=== PATIENT | male | born 1965 | race Caucasian/White ===

== ENCOUNTER 2020-01-03 16:27 | Observation (INO) ==
--- OUTSIDE RECORDS SUMMARY | 2020-01-03 16:29 | External Medical Summary | Continuity of Care Document ---
:1965 Author Name Musa Le, Provider Address Unavailable Unavailable , Care Team Providers Name Role Phone Harmeet Le, [email or web address] Unavailable Unavailable Problems Active medical history not documented Allergies and Adverse Reactions Allergy history not documented Medications Medications not documented Procedures Procedures not documented Immunizations Immunizations not documented Plan of Treatment Planned Observations Planned Goals not documented Results No Known Results Results not documented
[2020-01-03] MEDS ORDERED: NITROGLYCERIN SL 0.4 MG/TAB TAB SL PRN (16:43)
[2020-01-03] MEDS ORDERED: ASPIRIN CHEW 324 MG PO STA (16:43)
--- NOTE | 2020-01-03 16:48 | Emergency Department Note ---
ED Provider Note NAME: LEXI MOORE AGE: 54 SEX: M ARRIVES VIA: Walk-In INFORMANT: [Patient] ED PROVIDER(S): Tuan Cool MD CHIEF COMPLAINT: Chest pain IMPRESSION: Left-sided chest pain Acute electrocardiogram changes PLAN: Disposition: Admitted Condition: [Good] MEDICAL DECISION MAKING: The patient is a 54-year-old male who presented with intermittent left-sided chest pain. His EKG revealed inferior T wave inversions which are new. He did get a slight episode of pain while in the emergency department and was given a sublingual nitroglycerin which resolved his pain completely. His blood pressure improved. He was treated with aspirin. The patient will need further management in the hospital. Consultation was made with Dr. Tuan Whatley of the [facility] hospitalist service. He evaluated patient in the ER and admit him for further management. Triage Nursing notes reviewed and agree them. [Prior medical records reviewed] patient had a prior cardiac catheterization 11 years ago. Vital Signs: reviewed and remarkable for hypertension Differential diagnosis: Cardiac ischemia, aortic dissection, pulmonary embolism, pneumothorax, pneumonia, pericarditis, myocarditis, esophageal rupture, GERD, cholecystitis, pancreatitis, musculoskeletal, as well as other pathologies. ER treatment provided: Oral aspirin Sublingual nitroglycerin Diagnostics interpreted by me: ECG: Rate:95 Rhythm: Normal sinus rhythm Beatty: Normal QRS: Normal ST segements: No ST elevation or depression.T wave inversions inferiorly. Other: No PACs or PVCs. When compared to 03 September 2018 the inferior T wave inversions are new. Cardiac Monitoring: Cardiac monitoring: The patient was placed on continuous cardiac monitoring and observed. It revealed a normal sinus rhythm at 92 bpm without ectopy or evidence of dysrhythmia. Laboratory studies: [See below] an unremarkable CBC and chemistry panel except for mild hyperglycemia. The patient's troponin is currently normal. Imaging studies: Imaging studies: Chest x-ray. Findings: A chest x-ray was performed and revealed no pneumothorax, effusion, infiltrate, pulmonary edema, free air under the diaphragm, or wide mediastinum. Impression: No acute disease. [facility] HPI: The patient is a 54 year old male who presents to the Emergency Room with complaints of left-sided chest pain that has been intermittent. This started yesterday and is waxing and waning throughout the day. The patient also notes the following associated symptoms, nausea with the pain. The patient has found no relieving factors. Current pain is rated as 0/10. The pain episodes last several minutes. 1 did wake him from sleep. At its peak it was 5 out of 10. He notes having a catheterization and work-up done about a decade ago that was negative. He does have a strong family history of heart disease, is diabetic, and has hypertension. Pt denies LOC, headache, fevers, chills, diaphoresis, visual changes, neck pain,breathing difficulties, , vomiting, abdominal pain, back pain, melena, hematochezia, urinary symptoms, numbness, weakness, lymphadenopathy, rash, or other complaints. ROS: See above HPI for pertinent positives & negatives. A total of [10] systems reviewed and were otherwise negative. PAST MEDICAL HISTORY:[See Below], diabetes PAST SURGICAL HISTORY:[See Below] FAMILY HISTORY:[See Below], coronary artery disease SOCIAL HISTORY:Denies tobacco use. HOME MEDICATIONS:[See Below] ALLERGIES:[See Below] VITALS:[See Below] PHYSICAL EXAMINATION: GENERAL: Awake, alert, well-appearing, in no distress HENT: Normocephalic, atraumatic. Oropharynx unremarkable. EYES: Normal conjunctiva. Sclera non-icteric. NECK: Inspection normal. Non-tender. Supple. No nuchal rigidity. FROM. No masses. RESPIRATORY: Clear to auscultation. No wheezes. No rales. Normal respiratory effort. CARDIAC: Normal rate. Normal rhythm. No murmurs. No rubs. Extremities warm and well perfused. Pulses equal. No JVD. GI: Soft, non-distended. No tenderness to palpation. No rebound or guarding. No masses. RECTAL: Deferred. MUSCULOSKELETAL: Atraumatic. Chest examination reveals no tenderness. The back is symmetrical on inspection without obvious abnormality. There is no CVA tenderness to palpation. No joint edema. LOWER EXTREMITIES: Calves are equal size bilaterally and non-tender. No edema. No discoloration. NEURO: Normal sensorium. No sensory or motor deficits noted. SKIN: No rash or jaundice noted. ED COURSE: Procedures: [none] [Critical Care:] [None] Tuan Cool MD Impression & Plan Chest pain, Acute electrocardiogram changes Past Med/Surg History Medical History (Updated 01/03/20 @ 18:30 by Tuan Cool MD) Diabetes mellitus type 2, controlled Dyslipidemia Surgical History (Updated 01/03/20 @ 18:18 by Tuan Whatley MD) History of total right hip arthroplasty Status post cholecystectomy Family History (Updated 01/03/20 @ 18:20 by Tuan Whatley MD) Father Coronary heart disease Diabetes Grandfather (Maternal) Coronary heart disease Diabetes Grandfather (Paternal) Coronary heart disease Diabetes Brother Diabetes Social History (Updated 01/03/20 @ 18:20 by Tuan Whatley MD) Smoking Status: Never smoker Hx Alcohol Use: Yes Alcohol Intake Frequency Comment: few times a week Results & Data Vital Signs Vital Signs - 24 hr 01/03/20 16:29 01/03/20 17:00 01/03/20 18:10 Temperature 36.8 C Temperature Source Oral Pulse Rate 94 H 99 H Pulse Rate [Apical] 91 H Pulse Rate from SpO2 Sensor 100 H Pulse Rhythm [Apical] Regular Respiratory Rate 19 17 18 Respiratory Effort / Characteristics Non-Labored Non-Labored Spontaneous Respiratory Depth Normal Normal Respiratory Pattern Regular Regular Blood Pressure 209/96 H 141/75 H Blood Pressure [Right Arm] 162/81 H Blood Pressure Mean 133 100 Blood Pressure Mean [Right Arm] 108 Blood Pressure Position Sitting Pulse Oximetry 94 95 96 Oxygen Delivery Method Room Air Room Air Sepsis Recent Fever Within 48 Hours No Sepsis Action Taken by Nursing No Action Required 01/03/20 18:25 Temperature Temperature Source Pulse Rate Pulse Rate [Apical] Pulse Rate from SpO2 Sensor Pulse Rhythm [Apical] Respiratory Rate Respiratory Effort / Characteristics Respiratory Depth Respiratory Pattern Blood Pressure Blood Pressure [Right Arm] Blood Pressure Mean Blood Pressure Mean [Right Arm] Blood Pressure Position Pulse Oximetry Oxygen Delivery Method Room Air Sepsis Recent Fever Within 48 Hours Sepsis Action Taken by Nursing Laboratory Data Result diagrams: 01/03/20 16:47 01/03/20 17:44 Lab Results 01/03/20 01/03/20 01/03/20 Range/Units 16:47 16:47 16:47 WBC 6.70 (4.8-10.8) K/uL RBC 4.76 (4.7-6.1) M/uL Hgb 15.5 (14.0-18.0) g/dL Hct 44.3 (42-52) % MCV 93.1 (80-100) fL MCH 32.6 (25-34) pg MCHC 35.0 (32-36) g/dL RDW Std Deviation 43.3 (36.4-46.3) fL RDW Coeff of Helen 12.7 (11.5-14.5) % Plt Count 175 (130-400) K/uL MPV 10.0 (7.4-10.4) fL Immature Gran % (Auto) 0.9 % Neut % (Auto) 55.3 % Lymph % (Auto) 29.7 % Bibb % (Auto) 10.1 % Eos % (Auto) 3.6 % Baso % (Auto) 0.4 % Immature Gran # (Auto) 0.06 H (0.00-0.02) K/uL Neut # (Auto) 3.70 (1.4-6.5) K/uL Lymph # (Auto) 1.99 (1.2-3.4) K/uL Bibb # (Auto) 0.68 H (0.11-0.59) K/uL Eos # (Auto) 0.24 (0-0.5) K/uL Baso # (Auto) 0.03 (0-0.2) K/uL PT 10.7 (9.0-12.0) Seconds INR 1.0 (0.9-1.1) APTT 23.7 (21.0-31.0) Seconds PTT Ratio 0.8 Sodium 136 (136-145) mmol/L Potassium (3.5-5.1) mmol/L Chloride 102 (98-107) mmol/L Carbon Dioxide 28 (21-32) mmol/L Anion Gap 7.0 (3-11) BUN 18 (7-18) mg/dl Creatinine 0.95 (0.6-1.4) mg/dl Est Cr Clr Drug Dosing 105.2 ml/min Est GFR ( Amer) 103.3 Est GFR (Non-Af Amer) 89.1 BUN/Creatinine Ratio 18.7 (10-20) Glucose 260 H (70-99) mg/dl Calcium 9.5 (8.5-10.1) mg/dl Total Bilirubin 0.4 (0.2-1) mg/dl AST (15-37) U/L ALT 77 (12-78) U/L Alkaline Phosphatase 66 (45-117) U/L Troponin I < 0.015 (0-0.045) ng/ml Total Protein 7.4 (6.4-8.2) gm/dl Albumin 3.9 (3.4-5.0) gm/dl Globulin 3.5 (2.5-4.0) gm/dl Albumin/Globulin Ratio 1.1 (0.9-2) Lipase 107 (73-393) U/L 01/03/20 Range/Units 17:44 WBC (4.8-10.8) K/uL RBC (4.7-6.1) M/uL Hgb (14.0-18.0) g/dL Hct (42-52) % MCV (80-100) fL MCH (25-34) pg MCHC (32-36) g/dL RDW Std Deviation (36.4-46.3) fL RDW Coeff of Helen (11.5-14.5) % Plt Count (130-400) K/uL MPV (7.4-10.4) fL Immature Gran % (Auto) % Neut % (Auto) % Lymph % (Auto) % Bibb % (Auto) % Eos % (Auto) % Baso % (Auto) % Immature Gran # (Auto) (0.00-0.02) K/uL Neut # (Auto) (1.4-6.5) K/uL Lymph # (Auto) (1.2-3.4) K/uL Bibb # (Auto) (0.11-0.59) K/uL Eos # (Auto) (0-0.5) K/uL Baso # (Auto) (0-0.2) K/uL PT (9.0-12.0) Seconds INR (0.9-1.1) APTT (21.0-31.0) Seconds PTT Ratio Sodium (136-145) mmol/L Potassium 4.4 (3.5-5.1) mmol/L Chloride (98-107) mmol/L Carbon Dioxide (21-32) mmol/L Anion Gap (3-11) BUN (7-18) mg/dl Creatinine (0.6-1.4) mg/dl Est Cr Clr Drug Dosing ml/min Est GFR ( Amer) Est GFR (Non-Af Amer) BUN/Creatinine Ratio (10-20) Glucose (70-99) mg/dl Calcium (8.5-10.1) mg/dl Total Bilirubin (0.2-1) mg/dl AST (15-37) U/L ALT (12-78) U/L Alkaline Phosphatase (45-117) U/L Troponin I (0-0.045) ng/ml Total Protein (6.4-8.2) gm/dl Albumin (3.4-5.0) gm/dl Globulin (2.5-4.0) gm/dl Albumin/Globulin Ratio (0.9-2) Lipase (73-393) U/L Administered Medications Nitroglycerin (Nitrostat) 0.4 mg SL UD PRN PRN Reason: Chest Pain Stop: 02/02/20 16:42 Last Admin: 01/03/20 16:54 Dose: 0.4 mg Documented by: [id number] Discontinued Medications Aspirin (Aspirin) 324 mg PO NOW STA Stop: 01/03/20 16:44 Last Admin: 01/03/20 16:54 Dose: 324 mg Documented by: [id number] Discharge Plan Visit Data Chief Complaint: Chest Pain Stated Complaint: CHEST PAIN ED Provider: Tuan Cool Discharge Problem: Chest pain, Acute electrocardiogram changes Discharge Instructions Interventions: ED Discharge Assessment Last Done: 01/03/20 18:25 Forms Stand Alone Forms: [email or web address] Prescriptions Prescriptions: No Action metformin [Glucophage] 500 mg Tablet 500 mg PO BID RF: 0 Referrals Referrals: Lexi Wu MD [Primary Care Provider] -
[2020-01-03 16:53] LABS: Basophils # (auto) 0.03 K/uL (0-0.2); Basophils % (auto) 0.4 %; Eosinophils # (auto) 0.24 K/uL (0-0.5); Eosinophils % (auto) 3.6 %; Hematocrit (blood only) 44.3 % (42-52); Hemoglobin 15.5 g/dL (14.0-18.0); Immature Granulocytes # (auto) 0.06 K/uL (0.00-0.02); Immature Granulocytes % (auto) 0.9 %; Lymphocytes # (auto) 1.99 K/uL (1.2-3.4); Lymphocytes % (auto) 29.7 %; Mean Corpuscular Hemoglobin 32.6 pg (25-34); Mean Corpuscular Volume 93.1 fL (80-100); Monocytes # (auto) 0.68 K/uL (0.11-0.59); Monocytes % (auto) 10.1 %; Neutrophils % (auto) 55.3 %; Platelet Count 175 K/uL (130-400); RDW Coefficient of Variation 12.7 % (11.5-14.5); RDW Standard Deviation 43.3 fL (36.4-46.3); Red Blood Count 4.76 M/uL (4.7-6.1)
--- NOTE | 2020-01-03 16:58 | XRay Report ---
XR chest 1V portable HISTORY: 54 years-old Male Chest Pain . Atypical chest pain COMPARISON: Chest radiograph 05/11/2016 TECHNIQUE: Portable AP view of the chest FINDINGS: Calcified right hilar lymph nodes. Cardiac silhouette is unremarkable. No pneumothorax, pleural effus ion, airspace consolidation or overt pulmonary edema. Bones of the chest appear grossly intact. Degen erative changes of the shoulders and spine. IMPRESSION: No acute process. ACT 112: Negative or not required by law. The above report was generated using voice recognition software. It may contain grammatical, syntax o r spelling errors. Electronically signed by: Michi Navarro M.D. 01/03/2020 4:57 PM
[2020-01-03 17:06] LABS: Partial Thromboplastin Ratio 0.8; Partial Thromboplastin Time 23.7 Seconds (21.0-31.0); Prothrombin Time 10.7 Seconds (9.0-12.0)
[2020-01-03 17:15] LABS: Alanine Aminotransferase 77 U/L (12-78); Albumin Globulin Ratio 1.1 (0.9-2); Albumin Level 3.9 gm/dl (3.4-5.0); Alkaline Phosphatase 66 U/L (45-117); BUN Creatinine Ratio 18.7 (10-20); Bilirubin,Total 0.4 mg/dl (0.2-1); Blood Urea Nitrogen 18 mg/dl (7-18); Calcium 9.5 mg/dl (8.5-10.1); Carbon Dioxide 28 mmol/L (21-32); Chloride 102 mmol/L (98-107); Creatinine Clr Calc Pharmacy 105.2 ml/min; Est GFR (African American) 103.3; Est GFR (Non-African American) 89.1; Globulin 3.5 gm/dl (2.5-4.0); Glucose 260 mg/dl (70-99); Lipase 107 U/L (73-393); Sodium 136 mmol/L (136-145); Total Protein 7.4 gm/dl (6.4-8.2); Troponin I < 0.015 ng/ml (0-0.045)
--- NOTE | 2020-01-03 18:22 | History & Physical Report ---
Date of Service January 03, 2020 Assessment & Plan (1) Chest pain: 54-year-old male with multiple risk factors for coronary artery disease including a very strong family history. Presents with atypical chest pain, relieved by nitroglycerin. EKG shows sinus rhythm with inverted T waves inferiorly. First troponin is normal. Check serial troponins. Check lipid profile. Check echocardiogram. Start aspirin and metoprolol pending further diagnostic testing. Consult Cardiology. (2) Hypertension: Patient indicates that his blood pressures are sometimes borderline high, but he is not being treated for hypertension. Initial blood pressure in the ED was 209/96, repeat 141/75 after receiving nitroglycerin. Start metoprolol. Follow and titrate therapy. (3) Diabetes mellitus type 2, controlled: Diabetes mellitus type 2 without apparent complications. Takes metformin at home. Random blood sugar in ED 260. Check hemoglobin A1c. Hold metformin during hospital stay. Insulin coverage as necessary. (4) Dyslipidemia: History of dyslipidemia. Took atorvastatin in the past, but discontinued because of myalgias. Check lipid profile. Consider other therapeutic options if warranted. (5) DVT prophylaxis: VTE prophylaxis not indicated due to very low risk per IMPROVE Risk Assessment Model. Ambulate. (6) Discharge planning issues: Anticipated discharge to home. Family Medicine follow-up with Dr. Wu. History of Present Illness Chief Complaint: chest pain Primary Care Provider: Neo Wu MD 54-year-old male followed by Dr. Wu. History of diabetes mellitus type 2 and dyslipidemia. Very strong history of coronary artery disease, father, both grandfathers, and several uncles had coronary artery disease, several at a young age. Functional status is good and is able to do usual activities, including hunting, without chest pressure or unusual dyspnea. Last night around 0300 he had some crampy left parasternal chest pain which resolved spontaneously. Chest pain recurred around 0600, again resolving spontaneously. Few more episodes this afternoon, so he came to the ED for evaluation. Each episode was brief. No associated dyspnea, diaphoresis, nausea, vomiting. Came to the ED for evaluation and received nitroglycerin which seemed to help. Blood pressure was elevated upon arrival to the ED. Allergies Allergy/AdvReac Type Severity Reaction Status Date / Time No Known Allergies Allergy Unknown ` Verified 01/03/20 17:14 Home Medications Home Medications Medication Instructions Recorded Confirmed Type metformin [Glucophage] 500 mg PO BID 01/03/20 01/03/20 History Past Med/Surg History Medical History (Updated 01/03/20 @ 18:41 by Tuan Whatley MD) Diabetes mellitus type 2, controlled Dyslipidemia Hypertension Surgical History (Updated 01/03/20 @ 18:18 by Tuan Whatley MD) History of total right hip arthroplasty Status post cholecystectomy Family History (Updated 01/03/20 @ 18:20 by Tuan Whatley MD) Father Coronary heart disease Diabetes Grandfather (Maternal) Coronary heart disease Diabetes Grandfather (Paternal) Coronary heart disease Diabetes Brother Diabetes Social History (Updated 01/03/20 @ 18:20 by Tuan Wahtley MD) Smoking Status: Never smoker Hx Alcohol Use: Yes Alcohol Intake Frequency Comment: few times a week Review of Systems Constitutional: + weight gain (few pounds); no fever and no weight loss Eyes: no diplopia and no worsening vision Ear, Nose, Mouth, Throat: no nasal congestion, no sinus pain/pressure and no sore throat Respiratory: no cough and no dyspnea Cardiovascular: as per Subjective / HPI Gastrointestinal: + diarrhea/loose stools (chronic); no nausea, no vomiting, no constipation, no blood in stools and no melena Musculoskeletal: no joint pain and no myalgia Integumentary: no rash and no new lesions Neurologic: no headache(s) Endocrine: no polydipsia and no polyuria fasting blood sugars usually run in low 100's Hematologic / Lymphatic: no easy bleeding, no easy bruising and no lymphadenopathy Physical Exam Constitutional: WD/WN, vitals as above no acute distress Eyes: PERRL, conjunctivae normal, anicteric sclerae ENMT: external ear and nose normal, oropharynx normal Neck: trachea midline, no thyromegaly Respiratory: normal respiratory effort, lungs clear to auscultation Cardiovascular: Rate/Rhythm: regular rate Heart Sounds: + gallop (S4) and + murmur (II/ sys murmur at base); no cardiac rub Vessels: no JVD Extremities: normal capillary refill; no calf tenderness and no edema carotid and radial pulses +2/2 Gastrointestinal (Abdomen): normal bowel sounds, soft, nontender, no hepatosplenomegaly Musculoskeletal: Head/Neck/Chest: neck supple Extremities: strength 5/5 throughout; no cyanosis and no clubbing Skin: no rashes, warm and dry Neurologic: PERRL, EOMI no facial palsy no dysarthria or aphasia patellar DTR's 1/2 bilat Psychiatric: Orientation: alert and oriented x 3 Affect: euthymic affect Lymphatic: no cervical lymphadenopathy Results & Data Vital Signs (Past 12 Hours) Vital Signs Temp Pulse Pulse Resp BP BP Pulse Ox 01/03/20 18:10 91 H 18 162/81 H 96 01/03/20 17:00 99 H 17 141/75 H 95 01/03/20 16:29 36.8 C 94 H 19 209/96 H 94 Laboratory Results Laboratory Results - last 24 hr 01/03/20 01/03/20 01/03/20 16:47 16:47 16:47 WBC 6.70 RBC 4.76 Hgb 15.5 Hct 44.3 MCV 93.1 MCH 32.6 MCHC 35.0 RDW Std Deviation 43.3 RDW Coeff of Helen 12.7 Plt Count 175 MPV 10.0 Immature Gran % (Auto) 0.9 Neut % (Auto) 55.3 Lymph % (Auto) 29.7 [place] % (Auto) 10.1 Eos % (Auto) 3.6 Baso % (Auto) 0.4 Immature Gran # (Auto) 0.06 H Neut # (Auto) 3.70 Lymph # (Auto) 1.99 [place] # (Auto) 0.68 H Eos # (Auto) 0.24 Baso # (Auto) 0.03 PT 10.7 INR 1.0 APTT 23.7 PTT Ratio 0.8 Sodium 136 Potassium Chloride 102 Carbon Dioxide 28 Anion Gap 7.0 BUN 18 Creatinine 0.95 Est Cr Clr Drug Dosing 105.2 Est GFR ( Amer) 103.3 Est GFR (Non-Af Amer) 89.1 BUN/Creatinine Ratio 18.7 Glucose 260 H Calcium 9.5 Total Bilirubin 0.4 AST ALT 77 Alkaline Phosphatase 66 Troponin I < 0.015 Total Protein 7.4 Albumin 3.9 Globulin 3.5 Albumin/Globulin Ratio 1.1 Lipase 107 01/03/20 17:44 WBC RBC Hgb Hct MCV MCH MCHC RDW Std Deviation RDW Coeff of Helen Plt Count MPV Immature Gran % (Auto) Neut % (Auto) Lymph % (Auto) [place] % (Auto) Eos % (Auto) Baso % (Auto) Immature Gran # (Auto) Neut # (Auto) Lymph # (Auto) [place] # (Auto) Eos # (Auto) Baso # (Auto) PT INR APTT PTT Ratio Sodium Potassium 4.4 Chloride Carbon Dioxide Anion Gap BUN Creatinine Est Cr Clr Drug Dosing Est GFR ( Amer) Est GFR (Non-Af Amer) BUN/Creatinine Ratio Glucose Calcium Total Bilirubin AST ALT Alkaline Phosphatase Troponin I Total Protein Albumin Globulin Albumin/Globulin Ratio Lipase Diagnostic Findings PORTABLE CHEST X-RAY FINDINGS: Calcified right hilar lymph nodes. Cardiac silhouette is unremarkable. No pneumothorax, pleural effusion, airspace consolidation or overt pulmonary edema. Bones of the chest appear grossly intact. Degenerative changes of the shoulders and spine. IMPRESSION: No acute process. ACT 112: Negative or not required by law. The above report was generated using voice recognition software. It may contain grammatical, syntax or spelling errors. Electronically signed by: Michi Navarro M.D. 01/03/2020 4:57 PM ECG Additional Comments: EKG performed at 1636 reviewed and demonstrated NSR at 95 / min, inverted T- waves inferiorly. Code Status & VTE Plan Code Status Discussed with patient. He has a Living Will. He would like resuscitation attempted in the event of a cardiopulmonary arrest and there is a reasonable chance of a meaningful recovery, but does not want extraordinary measures initiated or continued if prognosis is extremely poor. Code status, therefore, is full code. VTE Prophylaxis Plan VTE Prophylaxis will be ordered: No
[2020-01-03] MEDS ORDERED: ACETAMINOPHEN 325 MG TAB PO PRN (18:58)
[2020-01-03] MEDS ORDERED: MoRPHine SULFATE 2 MG/ML CARP IV PRN (18:58)
[2020-01-03] MEDS ORDERED: GLUCAGON FOR INJ 1 MG VIAL IM PRN (19:15)
[2020-01-03] MEDS ORDERED: GLUCOSE 10 TABS/TUBE PO PRN (19:15)
[2020-01-03] MEDS ORDERED: CARBOHYDRATES FOR HYPOGLYCEMIA PO PRN (19:15)
[2020-01-03] MEDS ORDERED: DEXTROSE 50% 50 ML SYRINGE IV PRN (19:15)
[2020-01-03] MEDS ORDERED: GLUCOSE 40% GEL 15 GM TUBE PO PRN (19:15)
[2020-01-03] MEDS: INSULIN ASPART 100 UNITS/ML 3 ML PEN SC SCH (20:27)
[2020-01-03] MEDS: METOPROLOL TARTRATE 25 MG TAB PO SCH (20:27)
[2020-01-04 07:04] LABS: Chol HDL Ratio 6; Cholesterol 169 mg/dl (0-200); HDL Cholesterol 28 mg/dl; LDL Cholesterol Calculated 114 mg/dl; Triglycerides 137 mg/dl (0-150); Troponin I < 0.015 ng/ml (0-0.045); VLDL Cholesterol 27 mg/dl
[2020-01-04 07:14] LABS: Estimated Average Glucose 197 mg/dl; Hemoglobin A1C 8.5 % (4.5-5.6)
[2020-01-04] MEDS ORDERED: PERFLUTREN LIPID MICROSPHERE (DEFINITY) IV ONE (08:33)
[2020-01-04] MEDS: METOPROLOL TARTRATE 25 MG TAB PO SCH (08:49)
[2020-01-04] MEDS ORDERED: ASPIRIN 81 MG ECTAB PO SCH (09:00)
[2020-01-04] MEDS: INSULIN ASPART 100 UNITS/ML 3 ML PEN SC SCH ×2 (09:07→12:11)
--- NOTE | 2020-01-04 09:29 | Cardiology Consultation ---
Date of Consultation January 04, 2020 Assessment & Plan (1) Chest pain: Symptoms are suggestive of sensed ventricular ectopy patient with multiple ischemic risk factors. Agree with addition of beta-angi for hypertension and rhythm control Stress echocardiogram ordered for this morning to assess for ischemic burden and risk Patient needs risk factors readdressed and have discussed with patient. Would recommend adding low-dose beta-angi, NELDA inhibitor as well as trial reintroduction with statin. Would begin with rosuvastatin 5 mg/day (2) Hypertension: Patient warrants treatment with minimal of NELDA inhibitor and likely addition of low-dose beta-angi will be helpful (3) Dyslipidemia: Low HDL dyslipidemia pattern. Notes prior myalgias with atorvastatin (4) Aortic valve calcification: Will need serial echocardiograms yearly History of Present Illness Reason for Consultation: Chest pain, cardiac risk factors Requesting Physician: Dr. Tuan Whatley Attending Physician: Tuan Whatley MD History of Present Illness Patient is a 54-year-old male with multiple cardiac risk factors including poorly controlled diabetes mellitus, hypertension, hyperlipidemia past possible statin intolerance, strong family history of premature coronary and valvular heart disease. Patient presents this admission having developed an intermittent chest pressure sensation yesterday while working quietly in his office. Symptoms described as a cramping sensation occurring approximately every 10 minutes or so. Symptoms became more pronounced and more prevalent he presented to the emergency room for further evaluation. Symptoms are eased with beta-angi and nitrates. EKGs and enzymes not reflective of acute injury or ischemia. Patient is referred now for further evaluation. Patient carries a strong familial history of premature coronary disease and multiple cardiac risk factors. Notes possible myalgias with atorvastatin in the past. Previously on NELDA inhibitor discontinued. Blood pressure creeping up and elevated at times. Hemoglobin A1c 8.5. Denies prior history of myocardial infarction angina or congestive heart failure . Did undergo diagnostic cardiac catheterization in 2008 after chest pain during Persantine Cardiolite stress test. Study demonstrated no significant obstructive disease. He denies history of TIA or stroke rheumatic fever scarlet fever renal or hepatic disease. There is a strong familial history of aortic valve calcific disease in family including grandfather and father Further review of systems he denies acute fevers chills or sweats. Notes no cough hoarseness wheeze or hemoptysis notes no melena medication dysuria hematuria. Appetite and weight have been stable. No edema no claudication. Generally active without specific limitation and symptoms yesterday were not relationship to exertion. Initial EKG reveals elevated heart rate with mildl LVH with strain pattern. No acute changes on EKG this morning Troponins nondetectable Preliminary echocardiogram demonstrates preserved LV function with moderate calcification aortic valve no stenosis Allergies Allergy/AdvReac Type Severity Reaction Status Date / Time No Known Allergies Allergy Unknown ` Verified 01/03/20 17:14 Home Medications Home Medications Medication Instructions Recorded Confirmed Type metformin [Glucophage] 500 mg PO BID 01/03/20 01/03/20 History Patient History Medical History Diabetes mellitus type 2, controlled Dyslipidemia Hypertension Surgical History History of total right hip arthroplasty Status post cholecystectomy Family History Father Coronary heart disease Diabetes Grandfather (Maternal) Coronary heart disease Diabetes Grandfather (Paternal) Coronary heart disease Diabetes Brother Diabetes Social History Preferred Language: Syriac Communication Ability: Effective Make Up Editor Required: No Beliefs That Will Affect Care: None Current Living Situation: Alone Other Information That Helps Us Care for You: No Feels Safe at Home: Yes Safety Concerns: Feels Safe At This Time Smoking Status: Never smoker Hx Alcohol Use: Yes Alcohol type: beer, wine and hard liquor Alcohol Intake Frequency Comment: few times a week Hx Substance Use: No Review of Systems Review of Systems: All systems reviewed & are unremarkable except as noted in HPI & below Physical Exam Constitutional: WD/WN, vitals as above + obese; no acute distress Eyes: PERRL, conjunctivae normal, anicteric sclerae ENMT: external ear and nose normal, oropharynx normal Neck: trachea midline, no thyromegaly Respiratory: normal respiratory effort, lungs clear to auscultation Cardiovascular: Rate/Rhythm: regular rate and regular rhythm Heart Sounds: normal S1, normal S2 and + murmur (Grade 1-2 or 6 systolic murmur audible right upper sternal border); no gallop Palpation: normal PMI Vessels: normal carotid upstroke and radial pulses present; no JVD and no carotid bruit Extremities: no edema Gastrointestinal (Abdomen): normal bowel sounds, soft, nontender, no hepatos plenomegaly Musculoskeletal: no cyanosis or clubbing, extremities motor strength 5/5 Skin: no rashes, warm and dry Neurologic: PERRL, EOMI, accommodation nl, no face palsy, no dysarthria Psychiatric: A+Ox3, euthymic affect Results & Data ([facility]) Vital Signs (Past 12 Hours) Vital Signs Temp Pulse Pulse Pulse Resp BP BP 01/04/20 07:45 72 01/04/20 07:30 36.5 C 72 18 136/78 01/04/20 03:39 36.7 C 66 18 127/79 01/04/20 00:15 65 01/03/20 23:28 36.6 C 63 16 138/84 Pulse Ox 01/04/20 07:45 01/04/20 07:30 96 01/04/20 03:39 98 01/04/20 00:15 01/03/20 23:28 97 Laboratory Results Laboratory Results - last 24 hr 01/03/20 01/03/20 01/03/20 16:47 16:47 16:47 WBC 6.70 RBC 4.76 Hgb 15.5 Hct 44.3 MCV 93.1 MCH 32.6 MCHC 35.0 RDW Std Deviation 43.3 RDW Coeff of Helen 12.7 Plt Count 175 MPV 10.0 Immature Gran % (Auto) 0.9 Neut % (Auto) 55.3 Lymph % (Auto) 29.7 Faulk % (Auto) 10.1 Eos % (Auto) 3.6 Baso % (Auto) 0.4 Immature Gran # (Auto) 0.06 H Neut # (Auto) 3.70 Lymph # (Auto) 1.99 Faulk # (Auto) 0.68 H Eos # (Auto) 0.24 Baso # (Auto) 0.03 PT 10.7 INR 1.0 APTT 23.7 PTT Ratio 0.8 Sodium 136 Potassium Chloride 102 Carbon Dioxide 28 Anion Gap 7.0 BUN 18 Creatinine 0.95 Est Cr Clr Drug Dosing 105.2 Est GFR ( Amer) 103.3 Est GFR (Non-Af Amer) 89.1 BUN/Creatinine Ratio 18.7 Glucose 260 H POC Glucose Estimat Average Glucose Hemoglobin A1c Calcium 9.5 Total Bilirubin 0.4 AST ALT 77 Alkaline Phosphatase 66 Troponin I < 0.015 Total Protein 7.4 Albumin 3.9 Globulin 3.5 Albumin/Globulin Ratio 1.1 Triglycerides Cholesterol LDL Cholesterol, Calc VLDL Cholesterol, Calc HDL Cholesterol Cholesterol/HDL Ratio Lipase 107 01/03/20 01/03/20 01/03/20 17:44 20:25 22:39 WBC RBC Hgb Hct MCV MCH MCHC RDW Std Deviation RDW Coeff of Helen Plt Count MPV Immature Gran % (Auto) Neut % (Auto) Lymph % (Auto) Faulk % (Auto) Eos % (Auto) Baso % (Auto) Immature Gran # (Auto) Neut # (Auto) Lymph # (Auto) Faulk # (Auto) Eos # (Auto) Baso # (Auto) PT INR APTT PTT Ratio Sodium Potassium 4.4 Chloride Carbon Dioxide Anion Gap BUN Creatinine Est Cr Clr Drug Dosing Est GFR ( Amer) Est GFR (Non-Af Amer) BUN/Creatinine Ratio Glucose POC Glucose 177 H Estimat Average Glucose Hemoglobin A1c Calcium Total Bilirubin AST ALT Alkaline Phosphatase Troponin I < 0.015 Total Protein Albumin Globulin Albumin/Globulin Ratio Triglycerides Cholesterol LDL Cholesterol, Calc VLDL Cholesterol, Calc HDL Cholesterol Cholesterol/HDL Ratio Lipase 01/04/20 01/04/20 01/04/20 06:08 06:08 07:12 WBC RBC Hgb Hct MCV MCH MCHC RDW Std Deviation RDW Coeff of Helen Plt Count MPV Immature Gran % (Auto) Neut % (Auto) Lymph % (Auto) Faulk % (Auto) Eos % (Auto) Baso % (Auto) Immature Gran # (Auto) Neut # (Auto) Lymph # (Auto) Faulk # (Auto) Eos # (Auto) Baso # (Auto) PT INR APTT PTT Ratio Sodium Potassium Chloride Carbon Dioxide Anion Gap BUN Creatinine Est Cr Clr Drug Dosing Est GFR ( Amer) Est GFR (Non-Af Amer) BUN/Creatinine Ratio Glucose POC Glucose 153 H Estimat Average Glucose 197 Hemoglobin A1c 8.5 H Calcium Total Bilirubin AST ALT Alkaline Phosphatase Troponin I < 0.015 Total Protein Albumin Globulin Albumin/Globulin Ratio Triglycerides 137 Cholesterol 169 LDL Cholesterol, Calc 114 VLDL Cholesterol, Calc 27 HDL Cholesterol 28 Cholesterol/HDL Ratio 6 Lipase
[2020-01-04] MEDS ORDERED: lisinopriL 5 MG TAB PO SCH (11:15)
--- NOTE | 2020-01-04 11:23 | Cardiology Progress Note ---
Date of Service January 04, 2020 Subjective Patient was referred and underwent stress echocardiogram today. Patient exercised for 6 minutes on a Pradeep protocol and achieved 85% age-predicted maximal heart without cardiac ischemia by EKG or echocardiographic criteria. Patient experienced no symptoms during the study Current presentation not reflective of acute ischemia or coronary syndrome. Suspect sensed ventricular ectopy given clinical history with superimposed on uncontrolled hypertension. Recommendations: As prior would treat hypertension with addition of metoprolol and lisinopril. Restart statin with rosuvastatin 5 mg/day Follow-up with cardiology 6 weeks Results & Data Vital Signs (Past 12 Hours) Vital Signs Temp Pulse Pulse Pulse Resp BP BP 01/04/20 07:45 72 01/04/20 07:30 36.5 C 72 18 136/78 01/04/20 03:39 36.7 C 66 18 127/79 01/04/20 00:15 65 01/03/20 23:28 36.6 C 63 16 138/84 Pulse Ox 01/04/20 07:45 01/04/20 07:30 96 01/04/20 03:39 98 01/04/20 00:15 01/03/20 23:28 97
--- NOTE | 2020-01-04 14:26 | Hospitalist Progress Note ---
Date of Service January 04, 2020 Assessment & Plan (1) Chest pain: 54-year-old male with multiple risk factors for coronary artery disease including a very strong family history. Presented with atypical chest pain, relieved by nitroglycerin. EKG showed sinus rhythm with inverted T waves inferiorly. Serial troponins normal. LDL-c = 114. Echocardiogram showed mild LVH, no wall motion abnormalities, LVEF 60-65%. Cardiology consulted. No stress-induced ischemia on treadmill stress echo. Calculated 10-year risk of GA about 25% per AHA model. Start aspirin. Ongoing risk factor modification. (2) Hypertension: Patient indicates that his blood pressures are sometimes borderline high, but he is not being treated for hypertension. Initial blood pressure in the ED was 209/96, repeat 141/75 after receiving nitroglycerin. Discharge on metoprolol and lisinopril. Follow and titrate therapy. (3) Diabetes mellitus type 2, controlled: Diabetes mellitus type 2 without apparent complications. Takes metformin at home. Random blood sugar in ED 260. Hemoglobin A1c 8.5. FBS 153. Continue metformin. Will not increase dose because pt experiencing GI side effects. Further discussions with PCP to optimize glycemic control recommended. (4) Dyslipidemia: History of dyslipidemia. Took atorvastatin in the past, but discontinued because of myalgias. LDL-c 114. Try rosuvastatin 5 mg. Consider alternative therapies if rosuvastatin not tolerated. (5) DVT prophylaxis: VTE prophylaxis not indicated due to very low risk per IMPROVE Risk Assessment Model. Ambulate. (6) Discharge planning issues: Discharge to home. Family Medicine follow-up with Dr. Wu. Admission and Anticipated Discharge Date Admission Date: January 03, 2020 Subjective Recheck for chest pain. Patient seen in their room around 1440. No further chest pain. No SOB, nausea, vomiting. Stress test went well. Physical Exam Constitutional: no acute distress Respiratory: no respiratory distress Auscultation: lungs clear to auscultation bilaterally Cardiovascular: Rate/Rhythm: regular rate and regular rhythm Vessels: no JVD Extremities: no calf tenderness and no edema Gastrointestinal (Abdomen): normal bowel sounds, soft, nontender, no hepatosplenomegaly Skin: no rashes, warm and dry Psychiatric: Orientation: alert and oriented x 3 Results & Data ([facility] [place]) Vital Signs (Past 12 Hours) Vital Signs Temp Pulse Pulse Pulse Resp BP BP 01/04/20 11:28 36.6 C 73 20 138/83 01/04/20 07:45 72 01/04/20 07:30 36.5 C 72 18 136/78 01/04/20 03:39 36.7 C 66 18 127/79 Pulse Ox 01/04/20 11:28 96 01/04/20 07:45 01/04/20 07:30 96 01/04/20 03:39 98 Laboratory Results Laboratory Results - last 24 hr 01/04/20 01/04/20 01/04/20 06:08 06:08 07:12 POC Glucose 153 H Estimat Average Glucose 197 Hemoglobin A1c 8.5 H Troponin I < 0.015 Triglycerides 137 Cholesterol 169 LDL Cholesterol, Calc 114 VLDL Cholesterol, Calc 27 HDL Cholesterol 28 Cholesterol/HDL Ratio 6
--- NOTE | 2020-01-04 16:24 | Electrocardiogram Report ---
Test Reason : Blood Pressure : / mmHG Vent. Rate : 067 BPM Atrial Rate : 067 BPM P-R Int : 134 ms QRS Dur : 094 ms QT Int : 400 ms P-R-T Axes : 043 068 038 degrees QTc Int : 422 ms Normal sinus rhythm Normal ECG When compared with ECG of 03-JAN-2020 16:36, (unconfirmed) T wave inversion no longer evident in Inferior leads Confirmed by Yunior Salazar ([id number]) on 01/04/2020 4:23:50 PM Referred By: REFERRED SELF Confirmed By:Milton Salazar
--- NOTE | 2020-01-04 16:32 | Electrocardiogram Report ---
Test Reason : Blood Pressure : / mmHG Vent. Rate : 095 BPM Atrial Rate : 095 BPM P-R Int : 134 ms QRS Dur : 100 ms QT Int : 350 ms P-R-T Axes : 067 080 -25 degrees QTc Int : 439 ms Normal sinus rhythm Possible Left atrial enlargement T wave abnormality, consider inferior ischemia Abnormal ECG When compared with ECG of 11-MAY-2016 22:51, Inverted T waves have replaced nonspecific T wave abnormality in Inferior leads Confirmed by Yunior Salazar ([id number]) on 01/04/2020 4:31:38 PM Referred By: REFERRED SELF Confirmed By:Milton Salazar
--- NOTE | 2020-01-05 06:22 | Discharge Summary ---
Date of Service Date of Admission: 01/03/20 Date of Discharge: 01/04/20 Admission HPI Per Admitting Provider 54-year-old male followed by Dr. Wu. History of diabetes mellitus type 2 and dyslipidemia. Very strong history of coronary artery disease, father, both grandfathers, and several uncles had coronary artery disease, several at a young age. Functional status is good and is able to do usual activities, including hunting, without chest pressure or unusual dyspnea. Last night around 0300 he had some crampy left parasternal chest pain which resolved spontaneously. Chest pain recurred around 0600, again resolving spontaneously. Few more episodes this afternoon, so he came to the ED for evaluation. Each episode was brief. No associated dyspnea, diaphoresis, nausea, vomiting. Came to the ED for evaluation and received nitroglycerin which seemed to help. Blood pressure was elevated upon arrival to the ED. Principal Diagnosis chest pain, LA ruled out OTHER ACUTE / NEW DIAGNOSES: hypertension left ventricular hypertrophy aortic valve calcification without significant stenosis Discharge Data Allergies Allergy/AdvReac Type Severity Reaction Status Date / Time No Known Allergies Allergy Unknown ` Verified 01/03/20 17:14 Consultations 01/03/20 17:43 ED Decision to Admit Stat 01/03/20 18:58 Consult Cardiology Routine Hospital Course (1) Chest pain: 54-year-old male with multiple risk factors for coronary artery disease including a very strong family history. Presented with atypical chest pain, relieved by nitroglycerin. EKG showed sinus rhythm with inverted T waves inferiorly. Serial troponins normal. LDL-c = 114. Echocardiogram showed mild LVH, no wall motion abnormalities, LVEF 60-65%. Cardiology consulted. No stress-induced ischemia on treadmill stress echo. Calculated 10-year risk of LA about 25% per AHA model. Start aspirin. Ongoing risk factor modification. (2) Aortic valve calcification: Echo showed moderately calcified aortic valve leaflets without significant stenosis. Annual echocardiography recommended to follow. (3) Hypertension: Patient indicates that his blood pressures are sometimes borderline high, but he is not being treated for hypertension. Initial blood pressure in the ED was 209/96, repeat 141/75 after receiving nitroglycerin. Discharge on metoprolol and lisinopril. Follow and titrate therapy. (4) Diabetes mellitus type 2, controlled: Diabetes mellitus type 2 without apparent complications. Takes metformin at home. Random blood sugar in ED 260. Hemoglobin A1c 8.5. FBS 153. Continue metformin. Will not increase dose because pt experiencing GI side effects. Further discussions with PCP to optimize glycemic control recommended. (5) Dyslipidemia: History of dyslipidemia. Took atorvastatin in the past, but discontinued because of myalgias. LDL-c 114. Try rosuvastatin 5 mg. Consider alternative therapies if rosuvastatin not tolerated. (6) DVT prophylaxis: VTE prophylaxis not indicated due to very low risk per IMPROVE Risk Assessment Model. Ambulate. (7) Discharge planning issues: Discharge to home. Family Medicine follow-up with Dr. Wu. Total Time Total Time Spent Total Time Spent (In Minutes): 30 Discharge Plan Discharge Items Patient Disposition: Home - Self-Care Reason For Visit: chest pain Discharge Diagnosis: chest pain, no indication of myocardial infarction. elevated blood pressure elevated cholesterol elevated blood sugars Condition on Discharge: Good Activity: Resume your previous activity Non-emergency contact: Primary Care Provider and Hospitalist Call non-emergency contact if: you have any medication questions and your symptoms worsen Follow-up/Referrals: Neo Wu MD [Primary Care Provider] - 01/07/20 10:20 am (01/07/2020 10:20 AM Provider Neo Wu MD [facility] ) Diet: Carb Consistent or DM2 and Heart Healthy Addtl Attending Provider Instructions: MEDICATION CHANGES: metoprolol tartrate (Lopressor) 25 mg twice a day lisinopril (Prinivil or Zestril) 5 mg daily rosuvastatin (Crestor) 5 mg daily stop if you have severe muscle pain or weakness Please discuss options for management of your diabetes with Dr. Wu. SUMMARY OF TEST RESULTS: No sign of myocardial infarction (troponins normal x 3). Echocardiogram showed mild left ventricular hypertrophy and aortic sclerosis without significant stenosis. Stress test did not show any indication of severe blockage in coronary arteries. LDL cholesterol was 114. Hemoglobin A1c was 8.5. Fasting blood sugar was 153. RECOMMENDATIONS FOR FOLLOW-UP: Yearly echocardiogram to follow aortic valve recommended. Dr. Wu can order. OTHER INSTRUCTIONS: Seek medical attention if you have: * temperature above 101 * chest pain or trouble breathing * abdominal pain, nausea, vomiting * diarrhea, dark stools or bloody stools * any unanswered questions or concerns Call 911 if symptoms are severe. Please take good care of yourself. Call if you have any questions or problems. You can reach a [facility] hospitalist on duty at [facility] 24 hours a day by calling [phone]. My cell # is [phone]. Pending Studies at Discharge: No Stand-Alone Forms: My [facility], Smoking Cessation Medications and DC Order Prescriptions: New metoprolol tartrate 25 mg Tablet 25 mg PO BID Qty: 60 RF: 5 lisinopril [Zestril] 5 mg Tablet 5 mg PO QAM Qty: 30 RF: 5 rosuvastatin [Crestor] 5 mg Tablet 5 mg PO QAM Qty: 30 RF: 5 aspirin 81 mg Tablet,Delayed Release (Dr/Ec) 81 mg PO QAM Qty: 30 RF: 12 Continued metformin [Glucophage] 500 mg Tablet 500 mg PO BID RF: 0 Discharge Orders: Discharge Order (Routine); Ordered 01/04/20 Ordered By: Tuan Avery/Other Patient Handouts: Diabetes and Heart Disease, Diabetes Residential Complications, Diabetes Healthy Meals, Diabetes Exercise Benefits, Diabetes Manage A1C Test Admission Data Admit Date/Time: 01/03/20 17:42 Attending Provider: Tuan Whatley Admit Provider: Tuan Whatley Primary Care Provider: Neo Wu Other Providers: Tuan Whatley ; Sean Fisher Other Interventions: Discharge Summary Assessment (RN) Last Done: 01/04/20 14:49 DC Date/Time DO NOT enter until pt leaves facility: 01/04/20 15:08
[2020-01-05] MEDS ORDERED: ROSUVASTATIN CALCIUM 5 MG TAB PO SCH (09:00)
== END 2020-01-04 15:08 | disposition home or self-care (01) ==
LOC: ED 16:27 → 2S 17:42 → INTOOBSV 17:42 → 2S 18:25

== ENCOUNTER 2023-10-01 05:01 | Observation (INO) ==
--- NOTE | 2023-09-16 10:26 | PAT Medication Instructions ---
Medication Instructions Date of Service September 16, 2023 Home Medications Medication Instructions Recorded aspirin 81 mg tablet,delayed 81 mg PO QAM #30 tabs 01/04/20 release lisinopril 5 mg tablet (Zestril) 5 mg PO QAM #30 tabs 01/04/20 metoprolol tartrate 25 mg tablet 25 mg PO BID #60 tabs 01/04/20 metformin 500 mg tablet (Glucophage) 500 mg PO BID aspirin 81 mg tablet,delayed release 81 mg PO QAM lisinopril 5 mg tablet (Zestril) 5 mg PO QAM metoprolol tartrate 25 mg tablet 25 mg PO BID cholecalciferol (vitamin D3) 50 mcg (2,000 unit) capsule (Vitamin D3) 100 mcg PO QAM cyanocobalamin (vitamin B-12) 25 mcg tablet 25 mcg PO QAM ASK your prescriber and surgeon aspirin 81 mg tablet,delayed release 81 mg PO QAM DO NOT take the morning of surgery metformin 500 mg tablet (Glucophage) 500 mg PO BID lisinopril 5 mg tablet (Zestril) 5 mg PO QAM cholecalciferol (vitamin D3) 50 mcg (2,000 unit) capsule (Vitamin D3) 100 mcg PO QAM cyanocobalamin (vitamin B-12) 25 mcg tablet 25 mcg PO QAM Take morning of surgery With a small sip of water, OTHERWISE NOTHING TO EAT OR DRINK AFTER MIDNIGHT: metoprolol tartrate 25 mg tablet 25 mg PO BID Take evening before surgery metformin 500 mg tablet (Glucophage) 500 mg PO BID metoprolol tartrate 25 mg tablet 25 mg PO BID Other Notes If you have any questions please call us at [phone] or [phone] or [phone] or [phone]
--- NOTE | 2023-09-19 15:13 | Anesthesiology Consultation ---
Date of Service September 19, 2023 Assessment & Plan (1) Encounter for pre-operative examination: - Check BSG AM DOS - Infectious disease screening: Per assessment on 09/19/23: No known infectious disease contacts or current infectious disease symptoms. No noted recent Covid positive test result. - Outpatient joint assessment: Pt currently scheduled for inpatient pathway. If surgeon requests review for outpatient joint pathway, patient is not recommended candidate for outpatient joint program from anesthesia standpoint. - PCP visit (09/13/23 S): "Aortic valve stenosis.. Echo, complete (2D), trans- thoracic.. I would like to get this before his surgery just to better quantitate the degree of.. stenosis. He likely will need to be scheduled with Cardiology just for regular.. annual exams" - [place] ER visit (09/21/23): Complaints of neck pain with radiation to the deltoid. "Upon assessment the patient has history of an ACDF, he reports he rolled over in bed and began to have pain in his cervical spine with radiation to the deltoid. He denies any numbness and tingling in his left lower extremity.. The patient was provided with a lidocaine patch over the area of pain, as well as a cyclobenzaprine, and a Toradol IM injection. Upon reassessment the patient states moderate relief of pain from the medications. A CT scan of the cervical spine was ordered to rule out damage to the hardware from the ACDF. No vascular imaging was indicated based on the patient's presentation. The patient was discharged home prior to the formal radiology reading due to the extended length of time it was taking for [facility] to read the image. The patient had no red flag symptoms and he and I felt safe for discharge with the plan of returning for worsening of his symptoms. The patient was discharged with lidoderm patches and prednisone 20mg x 5 days for inflammation. He was provided strict return precaut ions and follow-up care. The patient was contacted at 0821 09/22/23 by myself to inform him his formal CT showed no acute injury, fracture or subluxation. The plan of care at discharge will remain at this time." - Aortic stenosis: PCP-ordered Echo performed 09/2023 notes Moderate to borderline severe aortic valve stenosis (AIDA 1.0-1.1cm2, MG 25.8mmhg). "Serial echocardiographic evaluation recommended. Consider cardiology consultation." Echo reviewed by PCP- PCP recommended/arranging preop stress test + cardiology evaluation. Awaiting PCP-ordered preop cardiology evaluation + stress test. Chart Review Chart Review: Patient seen in Pre Admission Testing Teaching & Discussion Pre-Anesthesia Teaching/Discussion Notes: Instructed NPO after midnight before surgery,except medications with 15 cc of water. Medication instructions provided according to the PAT guidelines. History Surgery Operation Date: 10/01/23 12:30 Proposed Procedures p Left Total Hip Arthroplasty - Lester Leary MD Height/Weight Height: 5 ft 7 in Weight: 110.5 kg Allergies Allergy/AdvReac Type Severity Reaction Status Date / Time No Known Allergies Allergy Unknown ` Verified 09/16/23 08:35 Medications Home Medications Medication Instructions Recorded Confirmed Last Taken aspirin 81 mg tablet,delayed 81 mg PO QAM #30 tabs 01/04/20 09/22/23 Unknown release lisinopril 5 mg tablet (Zestril) 5 mg PO QAM #30 tabs 01/04/20 09/22/23 Unknown cholecalciferol (vitamin D3) 50 100 mcg PO QAM 09/16/23 09/22/23 Unknown mcg (2,000 unit) capsule (Vitamin D3) cyanocobalamin (vitamin B-12) 50 50 mcg PO DAILY 09/22/23 09/22/23 Unknown mcg tablet (Vitamin B-12) lidocaine 5 % topical patch 1 patch topical DAILY #15 ea 09/22/23 Unknown (Lidoderm) metformin 500 mg tablet,extended 500 mg PO BID 09/22/23 09/22/23 Unknown release 24 hr metoprolol tartrate 25 mg tablet 25 mg PO AMHS 09/22/23 09/22/23 Unknown prednisone 10 mg tablet 10 mg PO DIRECTED #31 tabs 09/22/23 Unknown Past Medical History Medical History Aortic stenosis Echo 09/18/23: Moderate to borderline severe aortic valve stenosis (AIDA 1.0- 1.1cm2, MG 25.8mmhg) Hx of squamous cell carcinoma Bicuspid aortic valve Reported per patient, aortic valve with "three leaflets" per 09/2023 Echo Hypertension Dyslipidemia Hx, no longer on meds Diabetes mellitus type 2, controlled Exercise / Class Metabolic Activity II 4-5 Yardwork/Stairs/Walk up hill (one FS (no CP, no SOB)) Past Family History Family History Father Coronary heart disease Diabetes Grandfather (Maternal) Coronary heart disease Diabetes Grandfather (Paternal) Coronary heart disease Diabetes Brother Diabetes Past Surgical History Surgical History Hx of fusion of cervical spine ACDF Hx of colonoscopy Hx of squamous cell carcinoma excision back [place] teeth extracted History of total right hip arthroplasty Status post cholecystectomy Past Anesthesia History No Hx of Anesthesia Complications and No Family Hx of Anesthesia Complications History of PONV No Hx of PONV and No Hx of Motion Sickness Social History Smoking Status: Never smoker Do You Dip or Chew Tobacco: No (hx-quit years ago; advised) Hx Alcohol Use: Yes Alcohol type: beer, wine and hard liquor alcohol intake frequency: holidays/special occasions only Hx Substance Use: No substance use type: does not use Review of Systems Patient denies chest pain, shortness of breath, dyspnea on exertion, fever, chills, cough, wheezing, palpitations. Physical Exam Vital Signs VITALS BP 108/67 P 71 TEMP 98.2 SP02 98%RA RESP 16 PHYSICAL Full cervical extension range of motion. Full TMJ range of motion. TMD 4 finger breaths Mallampati Score 1 Dentition: intact, + caps Lungs: clear throughout to auscultation Cardiac: regular rate and rhythm, II-III/ systolic murmur Spine: normal Carotid arteries: negative bruit Extremities: no LE edema Lab Results Anesthesia Preop Results Results Anesthesia Widget: WBC 6.30 K/ul (4.8-10.8) 09/19/23 Hgb 14.6 g/dl (14.0-18.0) 09/19/23 Hct 42.4 % (42.0-52.0) 09/19/23 Plt 213 K/uL (130-400) 09/19/23 PT 10.9 Seconds (9.0-12.0) 09/19/23 PTT 25 Seconds (21-31) 09/19/23 INR 1.0 (0.9-1.1) 09/19/23 Blood Type A Positive 09/19/23 Antibody Screen NEGATIVE 09/19/23 Testing Laboratory Results 09/13/23 SODIUM 140 POTASSIUM 4.7 CHLORIDE 99 CO2 30 BUN 19 CREATININE 0.8 GLUCOSE 154 A1C 7.7% Electrocardiogram Date: 09/19/23 NSR at 62bpm. "Normal ECG" Isolated lead III TWI. Chest X-Ray Date: 09/19/23 FINDINGS: PA and lateral chest radiographs are compared to study dated 01/03/2020. Correlation is made to chest CT dated 08/19/2008. The cardiomediastinal silhouette is unremarkable. Calcified right hilar nodes are again noted. There is mild elevation of the right hemidiaphragm. There are tiny calcified granulomas. The lungs and pleural spaces are otherwise clear. There is no pneumothorax. The bony thorax appears intact. Fusion hardware is noted in the lower cervical spine. Cholecystectomy clips are noted in the upper abdomen. IMPRESSION: No active disease in the chest. Echocardiogram Date: 09/18/23 LVEF 60-65%. Mildly increased concentric LV wall thickness. Grade 1 diastolic dysfunction. Aortic valve has 3 leaflets. Aortic valve is severely calcified. Moderate to borderline severe aortic valve stenosis (AIDA 1.0-1.1cm2, MG 25.8mmhg). "Serial echocardiographic evaluation recommended. Consider cardiology consultation." Stress Test Date: 01/06/20 Stress echo is negative for inducible ischemia. Normal resting wall motion and no stress test induced wall motion abnormality. Moderate workload achieved.7.00 METS. 85% MPHR. EF 55-60%. Mild concentric LVH. Other Testing Cervical spine CT Date: 09/21/23 FINDINGS: Vertebrae: Status post anterior fusion of C5, C6 and C7 with expected postsurgical changes. No acute fracture. Discs/spinal canal/neural foramina: No acute findings. No spinal canal stenosis. Soft tissues: Unremarkable. IMPRESSION: No evidence of acute cervical spine pathology.
[2023-10-01] MEDS ORDERED: LR 15ML/HR IV SCH (06:00)
[2023-10-01] MEDS ORDERED: ACETAMINOPHEN 500 MG TAB PO SCH (06:00)
[2023-10-01] MEDS ORDERED: Scopolamine 1 MG TDSY TD SCH (06:00)
[2023-10-01] MEDS ORDERED: CeleBREX 200 MG CAP PO SCH (06:00)
[2023-10-01] MEDS ORDERED: LR 60ML/HR IV SCH (06:00)
[2023-10-01] MEDS ORDERED: METOCLOPRAMIDE HCL 10 MG TABLET PO SCH (06:00)
[2023-10-01] MEDS ORDERED: TRANEXAMIC ACID 1,000 MG **IV Pre-op IV SCH (06:00)
[2023-10-01] MEDS ORDERED: ceFAZolin 2000MG 2,000 MG/15 ML SYR IV SCH (06:00)
[2023-10-01] MEDS ORDERED: FAMOTIDINE 20 MG TAB PO SCH (06:00)
[2023-10-01] MEDS ORDERED: ROPIVACAINE 0.5% 5 MG/ML 30 ML VIAL ONE (06:19)
[2023-10-01] MEDS ORDERED: BUPIVACAINE/EPINEPHRINE 0.5% MPF 1:200,000 30 ML VIAL ONE (06:34)
[2023-10-01] MEDS ORDERED: PROPOFOL IV EMULSION 10 MG/ML 20 ML VIAL IV ONE (06:39)
[2023-10-01] MEDS ORDERED: MoRPHine SULFATE PF 1 MG/ML 10 ML AMP/VIAL ONE (06:39)
[2023-10-01] MEDS ORDERED: MIDAZOLAM HCL 1 MG/ML 2ML VIAL ONE (06:39)
[2023-10-01] MEDS ORDERED: LIDOCAINE 2% 2 ML VIAL/AMP(20MG/ML) INFIL ONE (06:39)
[2023-10-01] MEDS ORDERED: ONDANSETRON INJ 2 MG/ML 2 ML VIAL ONE (06:39)
[2023-10-01] MEDS ORDERED: fentaNYL citrate PF 100 MCG/2 ML VIAL ONE (06:42)
[2023-10-01] MEDS ORDERED: HYDROmorphone INJ 1 MG/ML SYRINGE IV PRN (06:45)
[2023-10-01] MEDS ORDERED: PROMETHAZINE HCL 6.25 MG in SODIUM CHLORIDE 0.9% 50 ML IV PRN (06:45)
[2023-10-01] MEDS ORDERED: KETOROLAC 30 MG/ML VIAL IV PRN (06:45)
[2023-10-01] MEDS ORDERED: ATROPINE SULFATE 0.1 MG/ML 10ML SYR IV PRN (06:45)
--- OUTSIDE RECORDS SUMMARY | 2023-10-01 06:49 | External Medical Summary | Summary of Care ---
Author Name Unknown Organization [facility] Address [address] [place] [address] Phone [phone] Care Team Providers Care Heart Doctor Name Role Phone Neo Wu MD Primary Care Provider [phone] Encounter Details Date Type Department Care Team (Late st Contact Info) Description 09/24/2023 Telephone Cardiology, [facility] [address] [facility] [place] [phone] Zach Jones MD [address] [facility] [place] [address] Allergies No known active allergiesdocumented as of this encounter (statuses as of 09/24/2023) Medications Medication Sig Dispensed Refills Start Date End Date Status Aspirin 81 MG Oral Tablet Delayed Release Take 1 Tablet by mouth in the morning. 0 01/04/2020 Active Cholecalciferol (VITAMIN D) 25 MCG (1000 UT) TABS Take 3 Tablets by mouth once. 90 Tab 0 04/14/2020 Active Thiamine HCl (VITAMIN B-1) 250 MG TABS Take 1 Tablet by mouth once. 30 Tab 0 04/14/2020 Active Rosuvastatin Calcium 5 MG Oral Tablet (CRESTOR) TAKE 1 TABLET BY MOUTH EVERY MORNING 30 Tab 0 10/11/2020 Active Additional Information Patient not taking.Reported on 05/08/2023 Triamcinolone Acetonide 0.1 % External Cream (Aristocort) Apply topically to affected area 2 times a day. To affected area. 80 g 5 09/12/2022 Active Additional Information Patient not taking.Reported on 09/13/2023 Sildenafil Citrate 20 MG Oral Tablet (Revatio)Indication s:Other male erectile dysfunction Take 1-5 tablets once daily for erectile dysfunction; may of 5 tablets in 24 hours 30 Tablet 5 12/17/2022 Active metFORMIN HCl ER 500 MG Oral Tablet Extended Release 24 Hour (Glucophage XR)Indications:Type 2 diabetes mellitus with hemoglobin A1c goal of less than 7.0% (HCC) Take 1 Tablet by mouth in the morning and 1 Tablet before bedtime. 180 Tablet 3 05/08/2023 Active Lisinopril 5 MG Oral Tablet (Prinivil)Indicatio ns:Essential hypertension with goal blood pressure less than 140/90 Take 1 Tablet by mouth in the morning. In the morning.. 90 Tablet 3 09/13/2023 Active Metoprolol Tartrate 25 MG Oral Tablet (Lopressor)Indicati ons:Essential hypertension with goal blood pressure less than 140/90 Take 1 Tablet by mouth in the morning and 1 Tablet before bedtime. 180 Tablet 3 09/13/2023 Active predniSONE 10 MG Oral Tablet (Deltasone) Take 1 Tablet by mouth in the morning. 0 09/22/2023 Active documented as of this encounter (statuses as of 09/24/2023) Active Problems Problem Noted Date Diagnosed Date Mixed hyperlipidemia 08/06/2018 Type 2 diabetes mellitus wit h hemoglobin A1c goal of less than 7.0% 08/07/2017 Biliary sludge 05/10/2016 DM type 2, not at goal 05/10/2016 Chest discomfort 05/08/2016 Dyspepsia 05/08/2016 Chronic sinusitis 04/11/2016 Chronic rhinitis 04/11/2016 Cough 04/11/2016 Respiratory abnormality 04/11/2016 Essential hypertension with goal blood pressure less than 140/90 04/11/2016 documented as of this encounter (statuses as of 09/24/2023) Immunizations Name Administration Dates Next Due Hepatitis B, 20+ yrs 11/21/2016,06/19/2016,05/16 Pneumococcal Polysaccharide PPV23 (Pneumovax) 05/16/2016 TDAP (age 10 and older)(Boostrix) 04/26/2014 Zoster Vaccine Recombinant (Shingrix) 04/14/2020 documented as of this encounter Social History Tobacco Use Types Packs/Day Years Used Date Smoking Tobacco: Never Passive Smoke Exposure: Past Smokeless Tobacco: Never Alcohol Use Standard Drinks/Week Comments No 0 (1 standard drink = 0.6 oz pur e alcohol) rare PHQ-2 Answer Date Recorded PHQ-2 Score 0 04/14/2020 Hunger Vital Sign Answer Date Recorded Worried About Running Out of Food in the Last Ye ar Never true 04/14/2020 Ran Out of Food in the Last Year Never true 04/14/2020 Sex and Gender Information Value Date Recorded Sex Assigned at Male 04/14/2020 7:48 AM EDT Gender Identity Male 04/14/2020 7:48 AM EDT Sexual Orientation Straight 04/14/2020 7: 48 AM EDT Job Start Date Occupation Industry Not on file Not on file Not on file documented as of this encounter Miscellaneous Notes * Telephone Encounter - Cecilia Patel OSA - 09/24/2023 11:42 AM EST See below. * Telephone Encounter - Mercy Barrios LPN - 09/24/2023 11:37 AM EST [facility]upis at [facility] PAT calling, Nuc test and Echo needed prior to clearance for surgery. Testing was all scheduled for next year. Procedure is 10/01/2023. Can we move this testing up for patient to be cleared for surgery? documented in this encounter Plan of Treatment Upcoming Encounters Date Type Department Care Team (Late st Contact Info) Description 10/03/2023 11:45 AM EST [facility] [place] [address] [facility] [address] Andrés Last MD [address] [facility] [place] [id number] 12/04/2023 8:15 AM EST Imaging [facility] 2nd Floor Cardiology, [place] [address] [place] [address] Gw, Excess Time Radiology [address] [place] [id number] 03/24/2024 8:00 AM EDT Office Visit [facility], [facility] [address] [facility] [address] Celina Cristobal CRNP [address] [facility] [place] [phone] 03/24/2024 8:30 AM EDT Cardiac Studies Cardiac Studies, [facility] [address] [facility] [address] Scheduled Procedures Name Priority Associated Diagnoses Date/Ti me COLONOSCOPY FLEXIBLE PROXIMA L DIAGNOSTIC Recall Special screening for malignant neoplasms, colon Health Maintenance Due Date Last Done Comments COVID-19 Vaccine (#1) 06/22/1966 Cologuard 12/20/2008 Fecal Occult Blood Test 12/20/2008 Sigmoidoscopy 12/20/2008 Pneumococcal Vaccine: Pediatrics (0 to 5 Years) and At-Risk Patients (6 to 64 Years) (2 - PCV) 05/16/2017 05/16/2016 Zoster Vaccines (2 of 2) 06/09/2020 04/14/2020 Albumin/Creatinine Ratio 04/14/2021 04/14/2020, 05/2018 Depression Screening 04/14/2021 04/14/2020 Influenza Vaccine (FLU shot) (#1) 2023 Diabetic Eye Exam 07/05/2023 07/05/2022, , 03/21/2017 HbA1c 03/14/2024 09/13/2023, 0802/2021, 04/14/2020, Additional history exists DTaP,Tdap,and Td Vaccines (2 - Td or Tdap) 04/26/2024 04/26/2014 Colonoscopy 07/08/2024 07/08/2014 Colorectal Cancer Screening 07/08/2024 B-12 09/13/2024 09/13/2023, 04/14/2020 Diabetic Foot Exam 09/13/2024 09/13/2023, 0 04/14/2020, 08/07/2017, Additional history exists GFR 09/13/2024 09/13/2023, 08/2 02/2021, 04/14/2020, Additional history exists Lipid Panel 09/13/2028 09/13/2023, 05/15, 04/14/2020, Additional history exists Hepatitis B Completed 11/21/2016, 03/2016, 05/16/2016 GARDASIL-HPV IMMUNIZATION SERIES Aged Out No longer eligible based on patient's age to complete this topic MENINGOCOCCAL (MENACTRA/MENVEO) Aged Out No longer eligible based on patient's age to complete this topic documented as of this encounter Medical Devices Implanted Type Area Foreign Food Specialty Cook Device Identifier Shelf Expiration Date Model / Serial / Lot 4.0 X 14 Vsd Screw Implanted:Qty: 6 on 06/13/2021 by Andrés Last MD at OR [facility] N/A: Spine Cervical JAMES : SPINE [id number] DA / / documented as of this encounter Advance Directives Latest Code Status on File Code Status Date Activated Date Inactivated Comments Full Code 06/13/2021 6:33 AM 06/13/2021 6:42 PM This order reflects the patients wishes and were consensually agreed upon. Care Teams Heart Doctor Relationship Specialty Start Date End Date Neo Wu MD [address] [place] [address] PCP - General Family Medicine 04/14/20 documented as of this encounter
--- OUTSIDE RECORDS SUMMARY | 2023-10-01 06:50 | External Medical Summary | Summary of Care ---
Author Name Unknown Organization [facility] Address [address] [place] [address] Phone [phone] Care Team Providers Care Hedis Nurse Name Role Phone Lexi Wu MD Primary Care Provider Reason for Referral * Precert (Within 10 days (routine)) - Pending Review Specialty Diagnoses / Procedures Referred By Contac t Referred To Contact Radiology Diagnoses Chest discomfort Mixed hyperlipidemia Procedures NM MYOCARD PERF IMG SPECT MULT STUDIES WITH PHARM INTERV Zach Jones MD [address] [place] [address] Referral ID Status Reason Start Date Expiration Date Visits Requested Visits Authorized [id number] Pending Review Precert 09/23/2023 999 999 * Precert (Within 10 days (routine)) - Authorized Specialty Diagnoses / Procedures Referred By Contac t Referred To Contact Cardiac Studies Diagnoses Chest discomfort Mixed hyperlipidemia Procedures ECHO, COMPLETE (2D), TRANS-THORACIC Zach Jones MD [address] [place] [address] Referral ID Status Reason Start Date Expiration Date V isits Requested Visits Authorized [id number] Authorized Precert 03/24/2024 999 999 Reason for Visit * Reason Comments Consultation * Evaluate & Treat - Unlimited Visits (Within 10 days (routine)) - Authorized Specialty Diagnoses / Procedures Referred By Contac t Referred To Contact Cardiovascular Medicine / Cardiology Diagnoses Aortic valve stenosis, etiology of cardiac valve disease unspecified Lexi Wu MD [address] [place] [address] Referral ID Status Reason Start Date Expiration Date Visits Requested Visits Authorized [id number] Authorized Specialty Services Required 09/20/[phone] Encounter Details Date Type Department Care Team (Late st Contact Info) Description 09/23/2023 8:00 AM EST Office Visit Cardiology, [facility] [address] [place] [address] Zach Jones MD [address] [place] [address] Mixed hyperlipidemia*; Chest discomfort Allergies No known active allergiesdocumented as of this encounter (statuses as of 09/23/2023) Medications Medication Sig Dispensed Refills Start Date [...] 09/13/2023 Sildenafil Citrate 20 MG Oral Tablet (Revatio)Indicati ons:Other male erectile dysfunction Take 1-5 tablets once daily for erectile dysfunction; may of 5 tablets in 24 hours 30 Tablet 5 12/17/2022 Active metFORMIN HCl ER 500 MG Oral Tablet Extended Release 24 Hour (Glucophage XR)Indications:Ty pe 2 diabetes mellitus with hemoglobin A1c goal of less than 7.0% ([facility]) Take 1 Tablet by mouth in the morning and 1 Tablet before bedtime. 180 Tablet 3 05/08/2023 Active Lisinopril 5 MG Oral Tablet (Prinivil)Indicat ions:Essential hypertension with goal blood pressure less than 140/90 Take 1 Tablet by mouth in the morning. In the morning.. 90 Tablet 3 09/13/2023 Active Metoprolol Tartrate 25 MG Oral Tablet (Lopressor)Indica tions:Essential hypertension with goal blood pressure less than 140/90 Take 1 Tablet by mouth in the morning and 1 Tablet before bedtime. 180 Tablet 3 09/13/2023 Active predniSONE 10 MG Oral Tablet (Deltasone) Take 1 Tablet by mouth in the morning. 0 09/22/2023 Active oxyCODONE HCl 5 MG Oral Capsule (Oxy IR) Take 1 Cap by mouth every 4 hours as needed for Pain, Severe. 20 Tab 0 06/13/2021 09/23/20 23 Discontinued hydrOXYzine HCl 25 MG Oral TabletIndications :Eczema, unspecified type Take 1 Tablet (25 mg) by mouth every 6 hours as needed for Itching. 40 Tablet 2 09/12/2022 09/23/20 23 Discontinued Ventolin HFA 108 (90 Base) MCG/ACT Inhalation Aerosol SolutionIndicatio ns:Bronchitis,Upp er respiratory tract infection, unspecified type Inhale 2 Puffs by mouth every 6 hours as needed for Congestion, Cough or Wheezing. 18 g 0 12/25/2022 09/23/20 23 Discontinued documented as of this encounter (statuses as of 09/23/2023) Active Problems Problem Noted Date Diagnosed Date [...] as of this encounter (statuses as of 09/23/2023) Immunizations Name Administration Dates Next Due Hepatitis [...] on file documented as of this encounter Last Filed Vital Signs Vital Sign Reading Time Taken Comments Blood Pressure 132/70 09/23/2023 8:05 AM EST Pulse 60 09/23/2023 8:05 AM EST Temperature - - Respiratory Rate 14 09/23/2023 8:05 AM EST Oxygen Saturation - - Inhaled Oxygen Concentration - - Weight 109.3 kg (241 lb) 09/23/2023 8:05 AM EST Height - - Body Mass Index 38.32 05/08/2023 3:39 PM EDT documented in this encounter Progress Notes * Zach Jones MD - 09/23/2023 8:00 AM EST Cardiology Consultation [facility] 09/22/2023 Reason for Consultation: Aortic valve disease Provider Requesting Consultation: PCP: LEXI WU [address] [place] [id number] History of Present Illness: Lexi Raymond Hernandez is a 57 year old year old male with referral concerns 1. Calcific aortic valve disease 2. Hypertension 3. Type 2 diabetes mellitus 4. Mild dyslipidemia Patient is referred for further evaluation. Was in the process of preoperative evaluation prior to planned hip replacement and underwent echocardiogram for murmur. ECHO demonstrated heavily calcified aortic valve with moderate to severe aortic stenosis Patient does admit to some fatigue as well as limited activities in the recent months due to hip pain but denies any chest pains, shortness of breath, tachy palpitations, syncope or near syncope. No tachy palpitations or arrhythmias. Denies prior history of rheumatic fever scarlet fever, TIA or stroke Hypertension controlled Strong familial history of valvular heart disease Appetite and weight are stable A Complete Review of Systems is as stated above or negative. Past Medical History: Patient Active Problem List Diagnosis Code Chronic sinusitis J32.9 Chronic rhinitis J31.0 Cough R05.9 Respiratory abnormality R06.9 Essential hypertension with goal blood pressure less than 140/90 I10 Chest discomfort R07.89 Dyspepsia R10.13 Biliary sludge K83.8 DM type 2, not at goal ([facility]) E11.9 Type 2 diabetes mellitus with hemoglobin A1c goal of less than 7.0% ([facility]) E11.9 Mixed hyperlipidemia E78.2 Past Surgical History: Procedure Laterality Date COLONOSCOPY, DIAGNOSTIC (RECTUM) 07/08/2014 normal, repeat 10 yrs INJECTION CERVICAL/THORACIC 01/02/2016 INJECTION SPINE LUMBAR CERVICAL OR THORACIC performed by Jose Rafael Les Green DO at OR [facility] INJECTION CERVICAL/THORACIC 01/16/2016 INJECTION SPINE LUMBAR CERVICAL OR THORACIC performed by Jose Rafael Les Green DO at OR [facility] LAPAROSCOPY; CHOLECYSTECTOMY N/A 09/15/2018 LAPAROSCOPIC CHOLECYSTECTOMY performed by Reg Mendez MD at [facility] MICROSURGERY ADD-ON N/A 06/13/2021 MICROSURGICAL SURGERY REQUIRING MICROSCOPE LISTED SEPARATELY performed by Andrés Last MD at [facility] MISCELLANEOUS ORDER (HS ONLY) 04/27/14 right hip replacement/ dr Leary NECK SPINE FUSION (CERV, BELOW C2) N/A 06/13/2021 ARTHRODESIS SPINE ANTERIOR CERVICAL performed by Andrés Last MD at [place] [facility] UMBIL HERNIA REPAIR (REDUCIBLE) AGE 5+YR N/A 09/15/2018 REPAIR UMBILICAL HERNIA AGE 5 AND OVER performed by Reg Mendez MD at [facility] Family History: Family History Problem Relation Age of Onset Diabetes Father Heart Disorder Father Social History: Social History Socioeconomic History Marital status: Spouse name: Not on file Number of children: 2 Years of education: Not on file Highest education level: Not on file Occupational History Employer: [employer] Tobacco Use Smoking status: Never Passive exposure: Past Smokeless tobacco: Never Vaping Use Vaping Use: Never used Substance and Sexual Activity Alcohol use: No Comment: rare Drug use: No Sexual activity: Not on file Other Topics Concern Not on file Social History Narrative Exercise: 20 -30 minutes [place] daily Social Determinants of Health Financial Resource Strain: Not on file Food Insecurity: No Food Insecurity (04/14/2020) Hunger Vital Sign Worried About Running Out of Food in the Last Year: Never true Ran Out of Food in the Last Year: Never true Transportation Needs: Not on file Physical Activity: Not on file Stress: Not on file Social Connections: Not on file Intimate Partner Violence: Not on file Housing Stability: Not on file Allergies: Patient has no known allergies. Medications: Current Outpatient Medications Medication Sig Dispense Refill Aspirin 81 MG Oral Tablet Delayed Release Take 1 Tablet by mouth in the morning. Cholecalciferol (VITAMIN D) 25 MCG (1000 UT) TABS Take 3 Tablets by mouth once. 90 Tab 0 Thiamine HCl (VITAMIN B-1) 250 MG TABS Take 1 Tablet by mouth once. 30 Tab 0 Sildenafil Citrate 20 MG Oral Tablet (Revatio) Take 1-5 tablets once daily for erectile dysfunction; may of 5 tablets in 24 hours 30 Tablet 5 metFORMIN HCl ER 500 MG Oral Tablet Extended Release 24 Hour (Glucophage XR) Take 1 Tablet by mouthin the morning and 1 Tablet before bedtime. 180 Tablet 3 Lisinopril 5 MG Oral Tablet (Prinivil) Take 1 Tablet by mouth in the morning. In the morning.. 90 Tablet 3 Metoprolol Tartrate 25 MG Oral Tablet (Lopressor) Take 1 Tablet by mouth in the morning and 1 Tablet before bedtime. 180 Tablet 3 predniSONE 10 MG Oral Tablet (Deltasone) Take 1 Tablet by mouth in the morning. Rosuvastatin Calcium 5 MG Oral Tablet (CRESTOR) TAKE 1 TABLET BY MOUTH EVERY MORNING (Patient not taking: Reported on 05/08/2023) 30 Tab 0 Triamcinolone Acetonide 0.1 % External Cream (Aristocort) Apply topically to affected area 2 times a day. To affected area. (Patient not taking: Reported on 09/13/2023) 80 g 5 No current facility-administered medications for this visit. OBJECTIVE/PHYSICAL EXAMINATION: BP 132/70 | Pulse 60 | Resp 14 | Wt 109.3 kg (241 lb) | BMI 38.32 kg/m | BSA 2.26 m General: Age-appropriate in no acute distress Head: normocephalic, no masses, lesions, tenderness or abnormalities Eyes: conjunctiva are pink and non-injected, sclera clear Throat: clear Nares: without discharge Neck: supple, no adenopathy, normal jugular venous pulse, no hepatojugular reflux, no carotid bruits Chest: normal shape and normal respiratory effort Lungs: clear to auscultation and percussion Cardiac Exam: - regular rate & rhythm, grade 2/6 systolic murmur, no diastolic murmur, gallop or rub - normal S-1, preserved S2 Abdomen: abdomen soft, non-tender, no abnormal masses, no hepatosplenomegaly, no abdominal bruit, no femoral bruit Musculoskeletal: no gait disturbance, no joint inflammation, no deforming arthritis Extremities: no edema, no cyanosis, pulses intact 2+/4 Neuro: grossly normal exam Data: Echocardiogram September 18, 2023 The qualitative LV ejection fraction is 60-64% (normal). The LV wall thickness is mildly increased (concentric). The left ventricular diastolic function is mildly abnormal (grade I). The aortic valve has three leaflets. The aortic valve is severely calcified. Moderate to borderline severe aortic valve stenosis, peak aortic valve velocity 3.5 m/sec, calculated aortic valve area 1.1 centimeter squared EKG September 19, 2023 Normal sinus rhythm with normal tracing at 62 beats per minute IMPRESSION: 57 year old year old male Who was undergoing preoperative evaluation prior to planned hip surgery and found on echocardiogramto have calcified aortic valve with moderate to borderline severe aortic stenosis. No specific cardiac symptoms or complaints EKG normal RECOMMENDATIONS/PLAN: 1. Moderate to borderline severe aortic stenosis: Discussed in detail with patient diagnosis and management. No distinct cardiac symptoms Stress nuclear imaging ordered to exclude ischemia earlier would complete Anticipate repeat echocardiogram in 6 months' time. Noted may ultimately require valve replacement in the next 1 to 5 years Valve currently not of surgical severity but noted progression has occurred since 2019 2. Preoperative cardiovascular evaluation: Stress nuclear imaging pending. No signs of heart failure or arrhythmia . If stress nuclear imaging is without ischemia would be reasonable to proceed with hip replacement had moderate increase in risk. No indications to proceed with valve surgery replacement at this time. Hip replacement would be helpful in recovery for potential valve surgery in the future 3. Cardiovascular risk factors, hypertension, hyperlipidemia being managed Patient advised to call with any questions or concerns and to report to the ER with any and all emergencies. Disposition: Further recommendations after above tests complete Zach Jones MD Cardiology, [facility] [address] [facility] [place] [address] documented in this encounter Nursing Notes * Delia Ruiz LPN - 09/23/2023 8:04 AM EST Examination Room: 14 Name: Lexi Hernandez Date of : 1965 Reason for Visit: New pt Problems/Concerns: Here after echo, denies any s/s Interim Hosp(s): denies Chest Pain/SOB: denies MyChart Discussed: ALREADY ACTIVE Patient was instructed to not get up on the exam table until directed and assisted by their provider; patient is to remain seated in the chair/ wheelchair/ exam table for fall prevention and safety reasons. Patient is aware staff will assist stepping down off exam table with personnel. documented in this encounter Plan of Treatment Upcoming Encounters Date Type Department Care Team (Late st Contact Info) Description 12/04/2023 8:15 AM EST Imaging [facility] 2nd Floor [facility] [address] [place] [address] Gw, Excess Time Radiology [address] [place] [address] 03/24/2024 8:00 AM EDT Office Visit Cardiology, [facility] [address] [facility] [place] [address] Celina Cristobal CRNP [address] [place] [address] 03/24/2024 8:30 AM EDT Cardiac Studies Cardiac Studies, [facility] [address] [place] Scheduled Orders Name Type Priority Associated Diagnoses Orde r Schedule EKG EKG Routine Chest discomfort Mixed hyperlipidemia Ordered: 09/23/2023 ECHO, COMPLETE (2D), TRANS-THORACIC Echocardiology Routine Chest discomfort Mixed hyperlipidemia Expected: 03/24/2024 (Approximate), Expires: 10/23/2025 NM MYOCARD PERF IMG SPECT MULT STUDIES WITH PHARM INTERV Cardiology Routine Chest discomfort Mixed hyperlipidemia Expected: 09/23/2023 (Approximate), Expires: 10/24/2024 Scheduled Procedures Name Priority Associated Diagnoses Date/Ti [...] 08/07/2017, Additional history exists GFR 09/13/2024 09/13/2023, 0802/2021, 04/14/2020, Additional history exists Lipid Panel 09/13/2028 09/13/2023, 05/15, 04/14/2020, Additional history exists Hepatitis B Completed 11/21/2016, 03/2016, 05/16/2016 GARDASIL-HPV IMMUNIZATION SERIES Aged Out No longer eligible based on patient's age to complete this topic MENINGOCOCCAL (MENACTRA/MENVEO) Aged Out No longer eligible based on patient's age to complete this topic documented as of this encounter Medical Devices Implanted Type Area System Technologist Device Identifier Shelf Expiration Date Model / Serial / Lot 4.0 X 14 Vsd Screw Implanted:Qty: 6 on 06/13/2021 by Andrés Last MD at [place] [facility] N/A: Spine Cervical JAMES : [id number] / / documented as of this encounter Visit Diagnoses Diagnosis Mixed hyperlipidemia- Primary Chest discomfort Other chest pain documented in this encounter Advance Directives Latest Code Status on File Code Status Date Activated Date Inactivated Comments Full Code 06/13/2021 6:33 AM 06/13/2021 6:42 PM This order reflects the patients wishes and were consensually agreed upon. Care Teams Hedis Nurse Relationship Specialty Start Date End Date Lexi Wu MD [address] [facility] [place] [id number] PCP - General Family Medicine 04/14/20 documented as of this encounter"
--- OUTSIDE RECORDS SUMMARY | 2023-10-01 06:50 | External Medical Summary | Summary of Care ---
Author Name Unknown Organization [facility] Address [address] [place] [address] Phone [phone] Care Team Providers Care Supervisor Waterworks Name Role Phone Neo Wu MD Primary Care Provider [phone] Reason for Visit * Reason Onset Date Comments Appointment 09/23/2023 Encounter Details Date Type Department Care Team (Late st Contact Info) Description 09/23/2023 Telephone Cardiology, [facility] [address] [place] [address] Zach Jones MD [address] [place] [address] Appointment Allergies No known active allergiesdocumented as of [...] Telephone Encounter - Cecilia Patel OSA - 09/23/2023 8:49 AM EST Nuc stress and echo needed per Dr. Jones. documented in this encounter Plan of Treatment Upcoming Encounters Date Type Department Care Team (Late st Contact Info) Description 03/24/2024 8:00 AM EDT Office Visit Cardiology, [facility] 132 [facility] [place] [address] Celina Cristobal CRNP [address] [facility] [place] [address] Scheduled Procedures Name Priority Associated Diagnoses Date/Ti [...] 2) 06/09/2020 04/14/2020 Albumin/Creatinine Ratio 04/14/2021 04/14/2020, 1005/2018 Depression Screening 04/14/2021 04/14/2020 Influenza Vaccine (FLU shot) (#1) 2023 Diabetic Eye Exam 07/05/2023 07/05/2022, , 03/21/2017 HbA1c 03/14/2024 09/13/2023, 05/15, 04/14/2020, Additional history exists DTaP,Tdap,and Td Vaccines (2 - Td or Tdap) 04/26/2024 04/26/2014 Colonoscopy 07/08/2024 07/08/2014 Colorectal Cancer Screening 07/08/2024 B-12 09/13/2024 09/13/2023, 04/14/2020 Diabetic Foot Exam 09/13/2024 09/13/2023, 0 04/14/2020, 08/07/2017, Additional history exists GFR 09/13/2024 09/13/2023, 05/15, 04/14/2020, Additional history exists Lipid Panel 09/13/2028 09/13/2023, 05/15, 04/14/2020, Additional history exists Hepatitis B Completed 11/21/2016, 03/2016, 05/16/2016 GARDASIL-HPV IMMUNIZATION SERIES Aged Out No longer eligible based on patient's age to complete this topic MENINGOCOCCAL (MENACTRA/MENVEO) Aged Out No longer eligible based on patient's age to complete this topic documented as of this encounter Medical Devices Implanted Type Area Pool Finisher Device Identifier Shelf Expiration Date Model / Serial / Lot 4.0 X 14 Vsd Screw Implanted:Qty: 6 on 06/13/2021 by Andrés Last MD at [facility] N/A: Spine Cervical JAMES : [id number] [id number] DA / / documented as of this encounter Advance Directives Latest Code Status on File Code Status Date Activated Date Inactivated Comments Full Code 06/13/2021 6:33 AM 06/13/2021 6:42 PM This order reflects the patients wishes and were consensually agreed upon. Care Teams Supervisor Waterworks Relationship Specialty Start Date End Date Neo Wu MD [address] [place] [address] PCP - General Family Medicine 04/14/20 documented as of this encounter
--- OUTSIDE RECORDS SUMMARY | 2023-10-01 06:50 | External Medical Summary | Summary of Care ---
Author Name Unknown Organization [facility] Address [address] [place] [address] Phone [phone] Care Team Providers Care Road Crew Member Name Role Phone Neo Wu MD Primary Care Provider [phone] Encounter Details Date Type Department Care Team (Late st Contact Info) Description 09/24/2023 Telephone [facility] [address] [place] [address] Andrés Last MD [address] [place] [address] Allergies No known active allergiesdocumented as of [...] encounter Miscellaneous Notes * Telephone Encounter - Jen Sumner RN - 09/24/2023 11:17 AM EST We don't have anything sooner at this time * Telephone Encounter - Lora Woodson OSA - 09/24/2023 9:32 AM EST pt of Dr Last cervical disk, injured self sleeping, went to ER Saturday, had CAT, is having pain. 09/24/23 Please advise if needs sooner and contact pt. documented in this encounter Plan of Treatment Upcoming Encounters Date Type Department Care Team (Late st Contact Info) Description 10/03/2023 11:45 AM EST Office Visit Neurosurgery, [place] [address] [facility] [place] [address] Andrés Last MD [address] [facility] [address] 12/04/2023 8:15 AM EST Imaging [facility] 2nd Floor Cardiology, [place] [address] [place] [address] Gw, Excess Time Radiology [address] [place] [address] 03/24/2024 8:00 AM EDT Office Visit Cardiology, [facility] [address] [facility] [address] [facility]obal [facility] [place] [address] 03/24/2024 8:30 AM EDT Cardiac Studies Cardiac Studies, [facility] [address] [place] [address] Scheduled Procedures Name Priority Associated Diagnoses Date/Ti [...] 07/05/2023 07/05/2022, , 03/21/2017 HbA1c 03/14/2024 09/13/2023, 08/02/2021, 04/14/2020, Additional history exists DTaP,Tdap,and Td Vaccines [...] this encounter Medical Devices Implanted Type Area Vascular Technician Device Identifier Shelf Expiration Date Model / Serial / Lot 4.0 X 14 Vsd Screw Implanted:Qty: 6 on 06/13/2021 by Andrés Last MD at OR [facility] N/A: Spine Cervical JAMES : [id number] / / documented as of this encounter Advance Directives Latest Code Status on File Code Status Date Activated Date Inactivated Comments Full Code 06/13/2021 6:33 AM 06/13/2021 6:42 PM This order reflects the patients wishes and were consensually agreed upon. Care Teams Road Crew Member Relationship Specialty Start Date End Date Neo Wu MD [address] [place] [address] PCP - General Family Medicine 04/14/20 documented as of this encounter
--- NOTE | 2023-10-01 06:55 | History & Physical Bridge Note ---
Date of Service October 01, 2023 History & Physical Bridge Note I have examined the patient, reviewed the History & Physical and in the interval since the performance of the History & Physical I have noted the following changes of clinical significance: no changes noted
[2023-10-01] MEDS ORDERED: HYDROmorphone INJ 2 MG/ML SYR/VIAL ONE (07:31)
[2023-10-01] MEDS ORDERED: ePHEDrine sulfate 50 MG/5 ML SYR ONE (08:21)
[2023-10-01] MEDS ORDERED: SUGAMMADEX SODIUM 200 MG/2 ML VIAL IV ONE (08:25)
[2023-10-01] MEDS ORDERED: DEXAMETHASONE SOD INJ 4 MG/ML VIAL ONE (08:30)
--- NOTE | 2023-10-01 08:58 | Operative Report ---
PG Post Operative Report Pre & Post Diagnosis Operation Date: 10/01/23 07:00 Pre-Op Diagnosis: Left Hip Degenerative Joint Disease Post-Op Diagnosis: Left Hip Degenerative Joint Disease I identified the patient and participated in the time-out.: Yes Procedure Operation Date: 10/01/23 07:00 Actual Procedures p Left Total Hip Arthroplasty(Left) - Lester Leary MD Surgeon Lester Leary MD Senior Director Marketing Axel Mclean PA-C Estimated Blood Loss 300 Findings Consistent with Post-Op Diagnosis Operative findings were advanced left hip DJD. He had extensive grade 4 [id number] disease the femoral head and acetabulum. He had a fairly large medial acetabular osteophytes. Some small anterior acetabular osteophytes. 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 The he had his right hip replaced back in 2013 is doing well from this. Over the past several years she developed increased pain discomfort in his left hip. That he failed conservative measures. X-rays show progressive and advanced left hip arthritis. He elected proceed with surgical treatment. Description of Procedure Operative implants consist of: 1 Biomet G7 size 54 mm acetabular shell. 2. [place] electrical subcontractor. 3. 6.5 cancellous acetabular screws 1 of 35 mm in length and 125 mm length. 4. Highly cross-linked polyethylene liner with a 54 mm outer diameter and 36 mm inner diameter. 5. DePuy Corail size 10 KLA femoral stem. 6. +1.5/36 mm ceramic articular ball. The patient was taken the operating, identified, and placed on the operating table in the supine position but all contact areas were appropriately padded. IV antibiotic 5 by anesthesia team. A general anesthetic was implemented due to his severe aortic stenosis. The patient was then placed in the right lateral decubitus position. An axillary roll was placed. Distal Birkett position was used for positioning. The left hip and leg were then prepped and draped in usual sterile fashion. A posterolateral approach the left hip was then performed to a curvilinear incision centered over the greater trochanter. Sharp dissection was carried through subcutaneous tissue down to level the IT band gluteal fascia with the IT band gluteal fascia incised longitudinally in line with skin incision. The underlying greater bursa was excised. His hip abductor muscles were quite well- developed and fairly prominent. A posterior capsulotomy was then performed. The piriformis and external rotators were taken off the posterior aspect of the hip along with the posterior hip joint capsule as a single layer. Great care was taken throughout the procedure protect the sciatic nerve at all times. Hip was internally rotated and dislocated. Femoral neck osteotomy cut was made with Final Cut about 15 mm above the lesser trochanter. Femoral head was removed and sent for pathology. The femur was retracted anteriorly. Attention drawn the acetabulum. The acetabular labrum was excised. The pulmonary fat was excised. Sequential reaming the acetabular was then performed again with size 45 and progressing up to 53. I reamed a little bit with the 54 reamer and then placed a 54 mm Biomet G7 acetabular shell in about 40 degrees lateral opening and 20 degrees of anteversion. Was fixed with two 6.5 cancellous acetabular screws. Trial liner was placed. Some small anterior osteophytes removed. Attention drawn the femur. The proximal femur was then with a [employer] cutter followed by canal finder. I then broached beginning with size 8 and progressing up to a 9. He had extremely firm cancellous bone envelope. We then trialed the hip. The +5 articular ball created full stability but was just a little bit tight so elected to go with a +1.5. I did elect to broach up an additional size on the femoral stem as it was just slightly rotationally unstable after he dislocating it. All trial implants were removed. [place] electrical subcontractor was placed. Highly cross-linked polyethylene liner was placed. I then did broach up to a size 10. A 10 KLA femoral stem was impacted in position. I could not quite get this to sit down the calcar. In light of this we elected to place the +1.5 articular ball. The hip was relocated and found to be stable. Leg lengths seemed equal and soft tissue tension was appropriate. The hip was fully stable. Hip was fully stable with full extension and external rotation and flexion to 90 degrees internal Tatian over 50 degrees. Attention drawn toward closing. The wounds irrigated with pulsatile lavage solution. I injected locally with 60 cc of half percent Marcaine with epinephrine. The posterior capsule and external rotators were then repaired through drill holes in the posterior trochanter with #2 Tycron suture. The IT band gluteal fascia then closed in 1 PDS suture running fashion through the subcutaneous tissue then closed in 2 layers with the deep layer #1 Vicryl suture and subcutaneous tissue with 2 Dexon suture in a buried interrupted fashion the skin was closed skin ruben. Leg was then cleaned and dried and sterile dressing was Xeroform, 4 fours, ABD pad, and foam tape were applied. Patient was then brought out of general esthesia and transferred to the recovery room in stable condition. Patient tolerated procedure well and there were no complications. Axel Mclean, my physician assistant passenger locomotive engineer, was present for the entire procedure. His assistance was essential and required for appropriate patient positioning, prepping and draping, surgical exposure, performing the technical details of the operation, placement the implants, closure of the wound, and placement of the sterile bandage. I attest to the content of the Intraoperative Record and any orders documented therein. Any exceptions are noted below.
[2023-10-01] MEDS ORDERED: NALOXONE HCL 0.4 MG/1 ML VIAL/CARP IV PRN (09:49)
[2023-10-01] MEDS ORDERED: ONDANSETRON INJ 2 MG/ML 2 ML VIAL IV PRN (09:49)
[2023-10-01] MEDS ORDERED: traMADol HCL 50 MG TABLET PO PRN (09:49)
[2023-10-01] MEDS ORDERED: PHARMACY GLYCEMIC MGMT CONSULT PRN (09:49)
[2023-10-01] MEDS ORDERED: DEXTROSE 50% 50 ML SYRINGE IV PRN ×2 (09:49→10:30)
[2023-10-01] MEDS ORDERED: SENNA 8.6 MG TAB PO SCH ×2 (09:49→21:00)
[2023-10-01] MEDS ORDERED: diphenhydrAMINE Capsule 25 MG CAP PO PRN (09:49)
[2023-10-01] MEDS ORDERED: GLUCAGON FOR INJ 1 MG VIAL SQ PRN (09:49)
[2023-10-01] MEDS ORDERED: HYDROmorphone INJ 0.5 MG/0.5 ML SYR IV PRN (09:49)
[2023-10-01] MEDS ORDERED: METOCLOPRAMIDE HCL INJ 5 MG/ML 2 ML VIAL IV PRN (09:49)
[2023-10-01] MEDS ORDERED: bisacodyL 10 MG SUPP PR PRN (09:49)
[2023-10-01] MEDS ORDERED: GLUCOSE 40% GEL 15 GM TUBE PO PRN ×2 (09:49→10:30)
[2023-10-01] MEDS ORDERED: ALUMINUM/MAGNESIUM SUSP 30 ML UDC PO PRN (09:49)
[2023-10-01] MEDS ORDERED: GLUCOSE 10 TAB/TUBE PO PRN ×2 (09:49→10:30)
[2023-10-01] MEDS ORDERED: MAGNESIUM HYDROXIDE SUSP 30 ML UDC PO PRN (09:49)
[2023-10-01] MEDS ORDERED: CARBOHYDRATES FOR HYPOGLYCEMIA PO PRN ×2 (09:49→10:30)
[2023-10-01] MEDS: SODIUM CHLORIDE 0.9% 1,000 ML IV SCH ×2 (10:27→20:11)
[2023-10-01] MEDS ORDERED: GLUCAGON FOR INJ 1 MG VIAL IM PRN (10:30)
--- NOTE | 2023-10-01 10:36 | Pharmacy Report ---
Pharmacy Glycemic Short Note 2 - Date of Service October 01, 2023 - Glycemic Short BSG Results (Last 24 hours): 10/01/23 10/01/23 05:39 08:58 POC Glucose 152 H 236 H OUTPATIENT ANTIDIABETIC REGIMEN: * Metformin 500 mg PO BIDM HbA1c ordered for 10/02/23 ASSESSMENT: * HILDA is a 57 year old male POD #0 s/p left total hip arthroplasty * Received 12 mg IV dexamethasone in OR w/ 8 mg PO x 1 ordered tomorrow AM * Preop BSG of 152 mg/dL, postop BSG of 236 mg/dL * Given BSG rise following steroid administration, will cover dexamethasone with ~0.4 unit/kg (adjusted body weight) basal and aggressive Novolog parameters PLAN FOR INPATIENT GLYCEMIC CONTROL: * Hold outpatient oral diabetes medications * Basal insulin * Lantus 35 units SQ x 1 * Reassess in AM * Bolus insulin * NovoLog per scale ACHS or Q6hrs while NPO * Goal Range: Low 110 mg/dL - High 140 mg/dL * Correction Factor: 15 mg/dL/unit * Nutritional / Prandial insulin per carb ratio of 1 unit per 5 grams CHO co nsumed
[2023-10-01] MEDS: KETOROLAC 30 MG/ML VIAL IV SCH ×3 (10:46→22:26)
[2023-10-01] MEDS: lisinopril 5 MG TAB PO SCH (10:47)
[2023-10-01] MEDS: MULTIVITAMIN TAB PO SCH (10:47)
[2023-10-01] MEDS: METOPROLOL TARTRATE 25 MG TAB PO SCH ×2 (10:47→20:23)
[2023-10-01] MEDS: DOCUSATE SODIUM 100 MG CAP PO SCH ×2 (10:47→20:22)
[2023-10-01] MEDS ORDERED: LANTUS PER UNIT CHARGE SC ONE (11:30)
[2023-10-01] MEDS: INSULIN ASPART PER UNIT CHARGE SC SCH ×3 (12:01→20:54)
[2023-10-01] MEDS: TAMSULOSIN HCL 0.4 MG CAP PO SCH (12:25)
[2023-10-01] MEDS: ASPIRIN 81 MG ECTAB PO SCH ×2 (12:25→20:22)
--- NOTE | 2023-10-01 12:34 | Anesthesiology Progress Note ---
Date of Service October 01, 2023 Anesthesia Post Procedure Vital Signs Vital Signs: Temp Pulse Pulse Resp BP Pulse Ox O2 Del Method 10/01/23 11:51 36.6 C 77 16 109/63 96 Room Air 10/01/23 10:45 36.8 C 76 16 117/65 96 Room Air 10/01/23 10:15 36.4 C L 80 16 115/67 100 Nasal Cannula 10/01/23 10:00 Nasal Cannula 10/01/23 09:49 36.9 C 85 16 124/69 99 Nasal Cannula 10/01/23 09:35 88 16 140/80 97 Nasal Cannula 10/01/23 09:25 36.6 C 89 12 134/76 97 Room Air 10/01/23 09:15 81 12 114/78 97 Oxymask 10/01/23 09:05 81 15 111/69 95 Oxymask 10/01/23 08:55 36.4 C L 78 14 117/54 L 98 Oxymask 10/01/23 05:54 36.7 C 66 20 125/77 98 Room Air O2 Flow Rate 10/01/23 11:51 10/01/23 10:45 10/01/23 10:15 2 10/01/23 10:00 2 10/01/23 09:49 2 10/01/23 09:35 2 10/01/23 09:25 10/01/23 09:15 10 10/01/23 09:05 12 10/01/23 08:55 12 10/01/23 05:54 Transfer of Care Handoff Completed per policy Notes Mental Status: alert / awake / arousable Patient Amnestic to Procedure: Yes Nausea / Vomiting: adequately controlled Pain: adequately controlled Airway Patency, RR, SpO2: stable & adequate BP & HR: stable & adequate Hydration State: stable & adequate Anesthetic Complications: no major complications apparent
--- NOTE | 2023-10-01 13:04 | XRay Report ---
XR hip 1V LT w pelvis CLINICAL HISTORY: Postoperative evaluation. COMPARISON: Left hip radiographs August 29, 2023. FINDINGS: Alignment of the total left hip arthroplasty is anatomic. There is no periprosthetic fract ure or unexpected radiopaque foreign body. There are 2 acetabular screws and skin ruben. Right hip arthroplasty is noted. IMPRESSION: Expected findings following total left hip arthroplasty. ACT 112: Negative or not required by law. Electronically signed by: Lexa Wayne M.D. 10/01/2023 1:03 PM
[2023-10-01] MEDS: ACETAMINOPHEN 500 MG TAB PO SCH ×2 (13:49→20:23)
[2023-10-01] MEDS ORDERED: TRANEXAMIC ACID / 0.7% NACL 1,000 MG/100 ML BAG IV SCH (15:00)
[2023-10-01] MEDS: ceFAZolin 2000MG 2,000 MG/15 ML SYR IV SCH ×2 (15:11→22:26)
[2023-10-01] MEDS: Scopolamine CHECK PATCH PLACEMENT SCH ×2 (15:46→23:02)
[2023-10-01] MEDS: ASCORBIC ACID 500 MG TAB PO SCH (16:35)
[2023-10-02] MEDS ORDERED: INSULIN ASPART PER UNIT CHARGE SC SCH
[2023-10-02] MEDS: KETOROLAC 30 MG/ML VIAL IV SCH ×2 (03:23→10:00)
[2023-10-02 07:16] LABS: Basophils # (auto) 0.02 K/uL (0.00-0.20); Basophils % (auto) 0.2 %; Eosinophils # (auto) 0.08 K/uL (0.00-0.50); Eosinophils % (auto) 0.7 %; Hematocrit (blood only) 33.3 % (42.0-52.0); Hemoglobin 11.6 g/dl (14.0-18.0); Immature Granulocytes # (auto) 0.15 K/uL (0.01-0.20); Immature Granulocytes % (auto) 1.3 %; Lymphocytes # (auto) 1.55 K/uL (1.20-3.40); Mean Corpuscular Hemoglobin 32.5 pg (25.0-34.0); Mean Corpuscular Hgb Conc 34.8 g/dL (32.0-36.0); Mean Corpuscular Volume 93.3 fL (80.0-100.0); Mean Platelet Volume 9.3 fL (9.4-12.4); Monocytes # (auto) 1.54 K/uL (0.11-0.59); Monocytes % (auto) 12.9 %; Neutrophils % (auto) 71.9 %; Platelet Count 186 K/uL (130-400); RDW Coefficient of Variation 12.2 % (11.5-14.5); RDW Standard Deviation 41.7 fL (36.4-46.3); Red Blood Count 3.57 M/uL (4.70-6.10); White Blood Count 11.94 K/ul (4.8-10.8)
[2023-10-02 07:27] LABS: Estimated Average Glucose 169 mg/dl; Hemoglobin A1C 7.5 % (4.5-5.6)
[2023-10-02 07:46] LABS: BUN Creatinine Ratio 25.6 (10-20); Calcium 8.7 mg/dl (8.6-10.3); Creatinine Clr Calc Pharmacy 119.5 ml/min; Est GFR (African American) 114.5 ml/min; Est GFR (Non-African American) 98.8 ml/min; Potassium 4.8 mmol/L (3.5-5.1)
[2023-10-02] MEDS ORDERED: dexAMETHasone 4 MG TAB PO SCH (08:00)
[2023-10-02] MEDS: lisinopril 5 MG TAB PO SCH (08:36)
[2023-10-02] MEDS: TAMSULOSIN HCL 0.4 MG CAP PO SCH (08:37)
[2023-10-02] MEDS: METOPROLOL TARTRATE 25 MG TAB PO SCH (08:37)
[2023-10-02] MEDS: ASCORBIC ACID 500 MG TAB PO SCH (08:37)
[2023-10-02] MEDS: DOCUSATE SODIUM 100 MG CAP PO SCH (08:37)
[2023-10-02] MEDS: ACETAMINOPHEN 500 MG TAB PO SCH (08:37)
[2023-10-02] MEDS: MULTIVITAMIN TAB PO SCH (08:37)
[2023-10-02] MEDS: Scopolamine CHECK PATCH PLACEMENT SCH (08:38)
[2023-10-02] MEDS: ASPIRIN 81 MG ECTAB PO SCH (09:00)
[2023-10-02] MEDS ORDERED: LANTUS PER UNIT CHARGE SC SCH (09:00)
[2023-10-02] MEDS ORDERED: CHOLECALCIFEROL 1,000 UNITS 25 MCG TAB PO SCH (09:00)
[2023-10-02] MEDS ORDERED: CYANOCOBALAMIN (B-12) 100 MCG TABLET PO SCH (09:00)
[2023-10-02] MEDS: INSULIN ASPART PER UNIT CHARGE SC SCH (09:01)
--- NOTE | 2023-10-02 09:17 | Orthopedic Progress Note ---
Date of Service October 02, 2023 Assessment & Plan (1) Status post left hip replacement: Overall, he is doing quite well today with good pain control to the left hip. He will be seen by physical therapy later today to work on ambulation and range of motion exercises. He is on aspirin for DVT prophylaxis. He can be discharged later today once evaluated by physical therapy. He will follow-up with Dr. Leary in 2 weeks for postoperative care. Subjective . Neo was evaluated this morning resting comfortably at bedside in no apparent distress. He notes that his pain is well-controlled to the left hip. He notes he has been up and out of bed and ambulating with no issues. He is yet to be seen by physical therapy this morning. He denies any other concerns. Review of Systems All systems reviewed & are unremarkable except as noted in HPI & below. Physical Exam . On physical examination of the left hip, dressing is in place, clean, dry, and intact. His leg is out in full extension. He has active plantarflexion dorsiflexion to the left ankle. +2 DP and PT pulses. Less than 2-second capillary refill. Normal sensation. Neurovascular intact. Results & Data Results & Data Laboratory Results . Diagnostic Findings . Postoperative x-rays the left hip shows prosthesis to be in anatomical alignment with no evidence of fracture complication or loosening. PG Care Time/CCT Total # of Minutes Spent Total Time Spent with Patient: Total time spent is greater than 50% in coordination of care (as documented) at patient's floor/unit and/or counseling patient: Coding Level of Care Code 21290 Post Operative Follow-Up Diagnoses Status post left hip replacement Z96.642
--- NOTE | 2023-10-02 09:19 | Discharge Summary ---
Date of Service October 02, 2023 Principal Diagnosis Same as "Discharge Diagnosis" noted below under Discharge Instructions. Discharge Exam . On physical examination of the left hip, dressing is in place, clean, dry, and intact. His leg is out in full extension. He has active plantarflexion dorsiflexion to the left ankle. +2 DP and PT pulses. Less than 2-second capillary refill. Normal sensation. Neurovascular intact. Discharge Data Procedures Performed Operation Date: 10/01/23 07:00 Actual Procedures p Left Total Hip Arthroplasty(Left) - Lester Leary MD Hospital Course (1) Status post left hip replacement: On October 01, 2023 Neo arrived at [facility] and underwent a left total hip arthroplasty without complications. He had a general anesthetic. Postoperatively, he was started on aspirin for DVT prophylaxis and transferred to the general orthopedic floor in stable condition. His hospital course was uneventful. On postoperative day #1, his vital signs were stable and his pain was well-controlled. He participated well with physical therapy doing ambulation and range of motion exercises. He was then discharged home in stable condition. He is going to follow-up with Dr. Leary in 2 weeks for postoperative care. PG Care Time/CCT Total # of Minutes Spent Total Time Spent with Patient: Total time spent is greater than 50% in coordination of care (as documented) at patient's floor/unit and/or counseling patient: Discharge Plan Discharge Items Patient Disposition: Home - Self-Care Reason For Visit: Left Hip Degenerative Joint Disease Discharge Diagnosis: Left Hip Replacement Activity: Per Instructions section Activity Comment: Follow/Obey hip precautions at all times. Weightbearing: Full weightbearing Weightbearing Comment: Weightbear as tolerated obeying hip precautions at all times. Non-emergency contact: Surgeon Call non-emergency contact if: you have any medication questions Follow-up/Referrals: Neo Wu MD [Primary Care Provider] - Diet: Carb Consistent or DM2 Addtl Attending Provider Instructions: ACTIVITY RECOMMENDATIONS: Physical Therapy: * Aggressive physical therapy is not usually needed. You will learn to take care of yourself safely and walk. * Follow the "Hip Precautions Instructions." * In some cases, the social work administrator at the hospital will arrange to have a therapist come to your house for the first couple of weeks to help you learn these skills. * You need to practice on your own or with the help of a family member as needed. * When you learn these skills, most of the therapy can be done on your own. Home Exercise: * You were shown a series of exercises in the hospital. Do these exercises three to four times each day including the exercises you were shown in physical therapy. Walking: * Get up and walk several times each day. For the first four weeks, try not to stand or walk for more than one hour at a time. If you do stand or walk for more than one hour, you will not hurt anything, but your leg will likely swell. * As you feel comfortable, you may change from the walker or crutches to a cane and then to independent walking. MEDICATIONS: New Medicine: * You will likely be taking one or more of these medicines: 1. Tramadol - Take, as directed, when you need it, every six hours to control your pain. 2. Aspirin - Thins your blood to lessen the chance of forming a blood clot. * The most common side effects of pain medicine and iron are nausea and constipation. If nausea or constipation is too much of a problem or if you have any questions about your new medicines or doses, call [facility] at . We will try to help you manage these issues. "VERY IMPORTANT TO READ AND REVIEW" Pain: * The immediate post-operative period after hip replacement surgery is often quite painful. * You are given a prescription for pain medicine. You should take it, as directed, when you need it, especially before physical therapy and before going to bed. Pain that interferes with sleep is very common and can last several months. * You will likely need pain medicine for the first two to four weeks. It will not stop all of the pain. The pain will lessen and as you feel better, you may change to milder pain medicine such as Tylenol. * The most common side effects of pain medicine are nausea and constipation, so don't take more than you need. SPECIAL CARE INSTRUCTIONS: TEDs/Elastic Stockings: * The white elastic stockings help limit swelling and prevent blood clots from forming in your legs. The more you wear them, the more they work. * Wear them for six weeks. Incision Site Care: * Remove dressing postoperative day 2 and then shower. Keep direct shower pressure off the incision site. * After showering, cover tori with dry gauze and change daily or more frequently if the dressing is getting saturated with drainage. * May completely stop using bandage if wound is dry and no drainage * Tori are removed between 2 and 3 weeks post-op. If your follow-up appointment is made before 2 weeks, please have your appointment re- scheduled. It is too early to remove the tori. Prevention of Infection: * Take antibiotics one hour before any dental cleaning, dental work, urological procedure, gastrointestinal procedure or any invasive surgery in order to prevent your new joint from getting infected. * You may get the antibiotics from the doctor performing the procedure or you may call our office at before and we will call in a prescription to the pharmacy of your choice. Things to Watch For: * Drainage from the incision site that occurs more than one week after your surgery. * Severely increased leg pain or swelling. * Increased redness at the incision site. * Fever above 102 degrees Fahrenheit. * Unusual chest pain or shortness of breath. * Unusual pain or burning with urination. Call [facility] at with any of the above problems or if you have any questions about your medicines or recovery. FOLLOW UP VISIT: Make an appointment to see your doctor for approximately two weeks after surgery for a progress check and staple removal by calling the office at . Pending Studies at Discharge: No Stand-Alone Forms: [facility] Cess[facility] Medications and DC Order Prescriptions: Continued tramadol 50 mg tablet 50 - 100 mg PO Q6 PRN (Reason: pain) Qty: 40 0RF Rx Instructions: Take as needed for pain ondansetron 4 mg tablet,disintegrating 4 mg PO Q8 PRN (Reason: nausea) Qty: 20 1RF Rx Instructions: Take as needed for nausea ketorolac 10 mg tablet 10 mg PO Q6 5 Days Qty: 20 0RF Rx Instructions: Take 4 times per day with food for 5 days to lessen pain and swelling. sennosides [Senokot] 8.6 mg tablet 8.6 mg PO BID 14 Days Qty: 28 0RF Rx Instructions: Take two times a day to prevent/treat constipation acetaminophen [Tylenol Extra Strength] 500 mg tablet 1,000 mg PO TID 30 Days Qty: 180 0RF Rx Instructions: Take 3 times per day to lessen pain. aspirin [Cassie Low Dose Aspirin] 81 mg tablet,delayed release (DR/EC) 81 mg PO BID 45 Days Qty: 90 0RF Rx Instructions: Take to prevent blood clots. tamsulosin [Flomax] 0.4 mg capsule 0.4 mg PO DAILY Qty: 7 0RF Rx Instructions: Begin night BEFORE surgery to prevent urinary retention cefadroxil 500 mg capsule 500 mg PO BID 7 Days Qty: 14 0RF Rx Instructions: Take 1 cap twice a day to prevent infection lisinopril [Zestril] 5 mg Tablet 5 mg PO QAM Qty: 30 5RF metoprolol tartrate 25 mg tablet 25 mg PO AMHS metformin 500 mg tablet extended release 24 hr 500 mg PO BID Vitamin B-12 50 mcg Tablet 50 mcg PO DAILY lidocaine [Lidoderm] 5 % adhesive patch,medicated 1 patch topical DAILY Qty: 15 0RF Rx Instructions: leave on most painful area for up to 12 hrs cholecalciferol (vitamin D3) [Vitamin D3] 50 mcg (2,000 unit) Capsule 100 mcg PO QAM Discontinued aspirin 81 mg Tablet,Delayed Release (Dr/Ec) 81 mg PO QAM Qty: 30 12RF Discharge Orders: Discharge Order (Routine); Ordered 10/02/23 Ordered By: Patrick Avery/Other Patient Handouts: Managing Type 2 Diabetes Admission Data Admit Date/Time: 10/01/23 08:56 Attending Provider: Lester Leary Admit Provider: Lester Leary Primary Care Provider: Neo Wu
== END 2023-10-02 11:40 | disposition home or self-care (01) ==
LOC: ASU 05:01 → 3E 05:01